=== PATIENT | male | born 1965 | race Caucasian/White ===

== ENCOUNTER 2016-09-02 12:40 | Observation (INO) | payer OTHER ==
[2016-09-02] MEDS: NS 1000 ML 1,000 ML IV SCH (15:17)
[2016-09-02 15:24] LABS: BASOPHILS # (AUTO) 0.1 X10^3/uL (0.0-0.1); BASOPHILS % (AUTO) 0.9 % (0.2-1.0); EOSINOPHILS # (AUTO) 0.1 x10^3/uL (0.0-0.2); EOSINOPHILS % (AUTO) 1.9 % (0.9-2.9); HEMATOCRIT 41.6 % (42.0-54.0); HEMOGLOBIN 14.2 g/dL (13.5-18.0); LYMPHOCYTES # (AUTO) 0.9 X10^3/uL (1.3-2.9); MEAN CORPUSCULAR HEMOGLOBIN 28.9 pg (27.0-34.0); MEAN CORPUSCULAR HGB CONC 34.2 g/dL (33.0-35.0); MEAN CORPUSCULAR VOLUME 84.7 fL (80.0-100.0); MEAN PLATELET VOLUME 10.1 fL (7.4-11.0); MONOCYTES # (AUTO) 0.5 x10^3/uL (0.3-0.8); MONOCYTES % (AUTO) 6.5 % (0.0-13.0); NEUTROPHILS # (AUTO) 5.6 x10^3/uL (2.2-4.8); NEUTROPHILS % (AUTO) 78.7 % (42.0-75.0); PLATELET COUNT 189 X10^3/uL (150.0-450.0); RED BLOOD COUNT 4.91 X10^6/uL (4.7-6.0); RED CELL DISTRIBUTION WIDTH 16.2 % (11.6-16.5); WHITE BLOOD COUNT 7.1 X10^3/uL (3.6-10.0)
[2016-09-02 15:43] LABS: BILIRUBIN,URINE NEGATIVE (NEGATIVE); BLOOD/HEMOGLOBIN,URINE 2+ (NEGATIVE); GLUCOSE, URINE 4+ (NEGATIVE); KETONES,URINE NEGATIVE (NEGATIVE); LEUKOCYTE ESTERASE ,URINE 1+ (NEGATIVE); NITRITES,URINE NEGATIVE (NEGATIVE); PROTEIN,URINE 4+ (NEGATIVE); UROBILINOGEN,URINE NORMAL (NORMAL)
[2016-09-02] MEDS ORDERED: HumuLIN R SC PRN (15:45)
[2016-09-02 15:48] LABS: APPEARANCE,URINE HAZY (CLEAR); BACTERIA,URINE TRACE /HPF (NEGATIVE); COLOR,URINE YELLOW (YELLOW); MUCUS,URINE FEW /HPF (NEGATIVE); RBC,URINE 0-3 /HPF (NEGATIVE); SQUAMOUS EPITHELIAL CELL,UR RARE /HPF (NEGATIVE)
[2016-09-02 16:07] LABS: ALANINE AMINOTRANSFERASE 22 Units/L (12-78); ALBUMIN 2.6 g/dL (3.4-5.0); ALKALINE PHOSPHATASE 93 Units/L (46-116); ASPARTATE AMINO TRANSFERASE 18 Units/L (15-37); BLOOD UREA NITROGEN 19 mg/dL (7-18); CALCIUM 8.5 mg/dL (8.5-10.1); CARBON DIOXIDE 28.5 mmol/L (21-32); CHLORIDE 101 mmol/L (98-107); CKMB % 3.3 % (<4); COR CA(FOR HYPOALB) 9.6 mg/dL (8.5-10.1); COR NA(FOR HYPERGLY) 144 mmol/L (136-145); CREATINE KINASE 131 Units/L (39-308); CREATININE 1.47 mg/dL (0.70-1.30); GLUCOSE 391 mg/dL (65-99); SODIUM 137 mmol/L (136-145); TOTAL PROTEIN 6.5 g/dL (6.4-8.2); TROPONIN I 0.05 ng/mL (0-1.5); eGFR BLACK RACES > 60 (>60); eGFR NON BLACK RACES 54 (>60)
[2016-09-02 16:10] LABS: CREATINE KINASE MB 4.3 ng/mL (0-4.0)
[2016-09-02 16:23] VITALS: BMI 30.6
[2016-09-02 16:24] LABS: FREE T4 (FREE THYROXINE) 1.12 ng/dL (0.76-1.46); TSH (3RD GENERATION) 1.596 uIU/mL (0.358-3.74)
--- NOTE | 2016-09-02 17:15 | RAD ---
HISTORY: Dizziness/ generalize weakness. Study: Portable chest. Comparison: Chest x-ray dated December 26, 2015. Findings: The costophrenic angles are off the field of view. The trachea is midline. The cardiac silhouette i s enlarged but unchanged. Prominent perihilar vasculature. No significant overt signs of failure. N o obvious focal consolidation, pleural effusion, or pneumothorax. The bony thorax is unremarkable. IMPRESSION: 1. No acute cardiopulmonary disease. Reported By:
[2016-09-02] MEDS: HumuLIN R SUBCUT PRN ×2 (17:22→21:19)
[2016-09-02] MEDS ORDERED: SNACK - Diabetic Appropriate PO SCH (20:00)
[2016-09-02 20:06] LABS: CKMB % 3.6 % (<4); TROPONIN I 0.05 ng/mL (0-1.5)
[2016-09-02 20:08] LABS: CREATINE KINASE MB 4.8 ng/mL (0-4.0)
[2016-09-02] MEDS ORDERED: NEURONTIN TAB 600 MG PO SCH (21:00)
[2016-09-02] MEDS ORDERED: COREG TAB 25 MG PO SCH (21:00)
[2016-09-02] MEDS ORDERED: PATIENT'S HOME MEDICATION (Clonazepam [Clonazepam] 1 TAB) PO SCH (21:00)
[2016-09-02] MEDS ORDERED: KLONOPIN TAB 1 MG PO SCH (21:00)
[2016-09-02] MEDS ORDERED: AMBIEN PO SCH (21:00)
[2016-09-02] MEDS: NEURONTIN CAP 300 MG PO SCH (21:17)
[2016-09-02] MEDS: LASIX PO SCH (21:18)
[2016-09-02] MEDS: KLONOPIN TAB 1 MG PO SCH (21:18)
[2016-09-02] MEDS: COREG TAB 25 MG PO SCH (21:18)
[2016-09-02] MEDS: LANTUS SC SCH (21:21)
[2016-09-02] MEDS: SNACK - Diabetic Appropriate PO SCH (21:34)
[2016-09-02 23:55] LABS: CKMB % 3.8 % (<4); TROPONIN I 0.05 ng/mL (0-1.5)
[2016-09-02 23:57] LABS: CREATINE KINASE MB 4.5 ng/mL (0-4.0)
[2016-09-03] MEDS: NS 1000 ML 1,000 ML IV SCH ×4 (03:00→23:23)
[2016-09-03] MEDS: HumuLIN R SUBCUT PRN ×4 (05:42→21:38)
[2016-09-03 05:50] LABS: BASOPHILS # (AUTO) 0.1 X10^3/uL (0.0-0.1); BASOPHILS % (AUTO) 1.4 % (0.2-1.0); EOSINOPHILS # (AUTO) 0.3 x10^3/uL (0.0-0.2); EOSINOPHILS % (AUTO) 4.5 % (0.9-2.9); HEMATOCRIT 37.8 % (42.0-54.0); HEMOGLOBIN 12.9 g/dL (13.5-18.0); LYMPHOCYTES % (AUTO) 18.1 % (21.0-51.0); MEAN CORPUSCULAR HEMOGLOBIN 28.9 pg (27.0-34.0); MEAN CORPUSCULAR HGB CONC 34.1 g/dL (33.0-35.0); MEAN CORPUSCULAR VOLUME 84.6 fL (80.0-100.0); MEAN PLATELET VOLUME 10.4 fL (7.4-11.0); MONOCYTES # (AUTO) 0.5 x10^3/uL (0.3-0.8); MONOCYTES % (AUTO) 8.4 % (0.0-13.0); NEUTROPHILS # (AUTO) 3.8 x10^3/uL (2.2-4.8); NEUTROPHILS % (AUTO) 67.6 % (42.0-75.0); PLATELET COUNT 150 X10^3/uL (150.0-450.0); RED BLOOD COUNT 4.46 X10^6/uL (4.7-6.0); RED CELL DISTRIBUTION WIDTH 16.5 % (11.6-16.5); WHITE BLOOD COUNT 5.7 X10^3/uL (3.6-10.0)
[2016-09-03 05:57] LABS: ALANINE AMINOTRANSFERASE 18 Units/L (12-78); ALBUMIN 2.3 g/dL (3.4-5.0); ALKALINE PHOSPHATASE 77 Units/L (46-116); ASPARTATE AMINO TRANSFERASE 17 Units/L (15-37); BLOOD UREA NITROGEN 20 mg/dL (7-18); CARBON DIOXIDE 27.5 mmol/L (21-32); CHLORIDE 104 mmol/L (98-107); COR CA(FOR HYPOALB) 9.4 mg/dL (8.5-10.1); COR NA(FOR HYPERGLY) 142 mmol/L (136-145); GLUCOSE 173 mg/dL (65-99); SODIUM 140 mmol/L (136-145); TOTAL PROTEIN 5.8 g/dL (6.4-8.2); eGFR BLACK RACES > 60 (>60); eGFR NON BLACK RACES > 60 (>60)
[2016-09-03] MEDS ORDERED: K-LYTE EFFERVESCENT PO PRN (06:23)
[2016-09-03] MEDS ORDERED: POTASSIUM CHLORIDE LIQ 20 MEQ UDC PO PRN (06:23)
[2016-09-03] MEDS ORDERED: K-RIDER 10 MEQ/NS 100 ML 10 MEQ/100 ML BAG IV PRN (06:23)
--- NOTE | 2016-09-03 06:41 | RAD ---
HISTORY: Shortness of breath Study: Chest one view Comparison: September 02, 2016 Findings: The heart is enlarged. The cinthya are prominent and indistinct and the interstitium is mildly prominen t. This suggest mild congestive heart failure. No alveolar edema, alveolar infiltrates, or pleural e ffusions are identified. The bony thorax is unremarkable. IMPRESSION: Cardiomegaly with interval development of mild congestive heart failure since the prior examination Reported By:
[2016-09-03] MEDS ORDERED: LEXAPRO ONE (08:53)
[2016-09-03] MEDS: COREG TAB 25 MG PO SCH ×2 (08:58→21:37)
[2016-09-03] MEDS: LEXAPRO PO SCH (08:58)
[2016-09-03] MEDS: LASIX PO SCH ×2 (08:58→21:37)
[2016-09-03] MEDS ORDERED: PLAVIX PO SCH (09:00)
[2016-09-03] MEDS: NORVASC TAB 10 MG PO SCH (09:00)
[2016-09-03] MEDS ORDERED: PROTONIX TAB 40 MG PO SCH (09:00)
[2016-09-03] MEDS ORDERED: PATIENT'S HOME MEDICATION (Escitalopram Oxalate [Lexapro 20 Mg] 1 TAB) PO SCH (09:00)
[2016-09-03] MEDS: LANTUS SC SCH ×2 (09:01→21:38)
[2016-09-03 10:25] LABS: ABG HCO3 26.5 mmol/L (22-26)
[2016-09-03 10:26] LABS: ABG ALLEN TEST POS
--- NOTE | 2016-09-03 10:43 | DR.UPDATE ---
H&P Update History and Physical Update: WAS SEEN IN THE OFFICE AND AN H&P WAS COMPLETED PRIOR TO ADMISSION. HE HAS BEEN SEEN AND EXAMINED WITH NO CHANGES NOTED. Changes noted: NO Yes with the following:
[2016-09-03] MEDS: K-DUR TAB 20 MEQ PO SCH (10:51)
--- NOTE | 2016-09-03 11:16 | PCM.PROG ---
Progress Note - Progress Note for Day of Date: 09/03/16 - Subjective Subjective: is a 51 year old male who was seen in our office yesterday with complaints of severe weakness, dizziness, chest pain, and complaints of his blood pressure being high. Upon morning rounds, patient is lying in bed with his eyes closed. Patient arouses to verbal stimuli. Patient continues to complain of weakness and dizziness throughout the night. Patient also complains of feeling short of breath, but denies any chest pain since yesterday. Patient expresses concerns that he is not able to move around and ambulate at home very well anymore and that he has to depend on someone else to transport him to appointments and around town. Patient wishes to be placed in assisted living or group home. Vitals this morning are 97.2, 60, 17, 95%, 131/69. Labs were WNL with exception of RBC 4.46, HGB 12.9, HCT 37.8, POTASSIUM 3.4, BUN 20, GLUCOSE 173, CALICUM 8.0, TOTAL PROTEIN 5.8, ALBUMIN 2.3, Cardiac profile WNL except CK- MB 4.3,4.8,4.5. EKG WNL. A chest xray was obtained and reports cardiomegaly with interval development of mild CHF. We will obtain an ABG and recheck labs and xray in am. - Past Medical Family Social History Past Med/Fam/Surg Hx: No changes since H&P Allergies: Allergies cephalexin [From Keflex] Allergy (Verified 09/02/16 15:04) clindamycin [From Cleocin] Allergy (Verified 09/02/16 15:05) Influenza Virus Vaccines Allergy (Verified 09/02/16 15:05) Penicillins Allergy (Verified 09/02/16 16:59) pneumococcal vaccine [From Pneumovax 23] Allergy (Verified 09/02/16 16:59) Sulfa (Sulfonamide Antibiotics) [SULFA] Allergy (Verified 09/02/16 15:05) - Review of Systems ROS: No change since H&P - Vital Signs and I&O's Vital Signs: Temperature 97.6 F Pulse Rate [Right Brachial] 60 Pulse Rate [Bilateral Radial] 60 Respiratory Rate 20 Blood Pressure [Left Arm] 131/69 Blood Pressure [Right Arm] 152/96 O2 Sat by Pulse Oximetry 95 Intake and Output: Intake & Output 08/31/16 09/01/16 09/02/16 09/03/16 11:59 11:59 11:59 11:59 Intake Total 2570 Output Total 2050 Balance 520 - Physical Exam Oriented: Normal Eyes: Normal Ear: Normal Nose: Normal Throat: Normal Respiratory: Normal Cardiovascular: Normal : Normal Auscultation: Bowel Sounds: Normal Palpation: Normal Tenderness: Normal Skin: Normal Musculoskeletal: Normal Psychiatric: Normal Mood Description: Calm Affect: Normal Speech Pattern: Clear, Appropriate - Laboratory and Diagnostics Result Diagrams: 09/03/16 03:30 09/03/16 03:30 Labs: Laboratory WBC 5.7 X10^3/uL (3.6-10.0) 09/03/16 03:30 RBC 4.46 X10^6/uL (4.7-6.0) L 09/03/16 03:30 Hgb 12.9 g/dL (13.5-18.0) L 09/03/16 03:30 Hct 37.8 % (42.0-54.0) L 09/03/16 03:30 MCV 84.6 fL (80.0-100.0) 09/03/16 03:30 MCH 28.9 pg (27.0-34.0) 09/03/16 03:30 MCHC 34.1 g/dL (33.0-35.0) 09/03/16 03:30 RDW 16.5 % (11.6-16.5) 09/03/16 03:30 Plt Count 150 X10^3/uL (150.0-450.0) 09/03/16 03:30 MPV 10.4 fL (7.4-11.0) 09/03/16 03:30 Neut % 67.6 % (42.0-75.0) 09/03/16 03:30 Lymph % 18.1 % (21.0-51.0) L 09/03/16 03:30 [place] % 8.4 % (0.0-13.0) 09/03/16 03:30 Eos % 4.5 % (0.9-2.9) H 09/03/16 03:30 Baso % 1.4 % (0.2-1.0) H 09/03/16 03:30 Neut # 3.8 x10^3/uL (2.2-4.8) 09/03/16 03:30 Lymph # 1.0 X10^3/uL (1.3-2.9) L 09/03/16 03:30 [place] # 0.5 x10^3/uL (0.3-0.8) 09/03/16 03:30 Eos # 0.3 x10^3/uL (0.0-0.2) H 09/03/16 03:30 Baso # 0.1 X10^3/uL (0.0-0.1) 09/03/16 03:30 Absolute Nucleated RBC 0.1 /100WBC 09/03/16 03:30 Sample Site Left radial 09/03/16 10:17 ABG pH 7.430 (7.35-7.45) 09/03/16 10:17 ABG pCO2 40.0 mmHg (35.0-45.0) 09/03/16 10:17 ABG pO2 83.0 mmHg (80.0-100.0) 09/03/16 10:17 ABG HCO3 26.5 mmol/L (22-26) H 09/03/16 10:17 ABG O2 Saturation 96.0 % (90-100) 09/03/16 10:17 ABG Base Excess 2.0 mmol/L (-2.0-2.0) 09/03/16 10:17 Kar Test Pos 09/03/16 10:17 A-a Gradient 17.0 mmHg 09/03/16 10:17 FiO2 21.000 09/03/16 10:17 Blood Gas Comments Emma well aw 09/03/16 10:17 Sodium 140 mmol/L (136-145) 09/03/16 03:30 Corrected Sodium 142 mmol/L (136-145) 09/03/16 03:30 Potassium 3.4 mmol/L (3.5-5.1) L 09/03/16 03:30 Chloride 104 mmol/L (98-107) 09/03/16 03:30 Carbon Dioxide 27.5 mmol/L (21-32) 09/03/16 03:30 BUN 20 mg/dL (7-18) H 09/03/16 03:30 Creatinine 1.30 mg/dL (0.70-1.30) 09/03/16 03:30 Est GFR (MDRD) Af Amer > 60 (>60) 09/03/16 03:30 Est GFR (MDRD) Non-Af > 60 (>60) 09/03/16 03:30 Glucose 173 mg/dL (65-99) H 09/03/16 03:30 Calcium 8.0 mg/dL (8.5-10.1) L 09/03/16 03:30 Corrected Calcium 9.4 mg/dL (8.5-10.1) 09/03/16 03:30 Total Bilirubin 0.60 mg/dL (0.2-1.0) 09/03/16 03:30 AST 17 Units/L (15-37) 09/03/16 03:30 ALT 18 Units/L (12-78) 09/03/16 03:30 Alkaline Phosphatase 77 Units/L (46-116) 09/03/16 03:30 Creatine Kinase 120 Units/L (39-308) 09/02/16 22:45 CK-MB (CK-2) 4.5 ng/mL (0-4.0) H* 09/02/16 22:45 CK/CKMB % Calc 3.8 % (<4) 09/02/16 22:45 Troponin I 0.05 ng/mL (0-1.5) 09/02/16 22:45 Total Protein 5.8 g/dL (6.4-8.2) L 09/03/16 03:30 Albumin 2.3 g/dL (3.4-5.0) L 09/03/16 03:30 Globulin 3.5 g/dL (2.5-4.5) 09/03/16 03:30 Albumin/Globulin Ratio 0.7 Ratio (1.1-2.1) L 09/03/16 03:30 Free PSA Cancelled 09/02/16 15:08 % Free PSA Calc Cancelled 09/02/16 15:08 Total PSA 0.40 ng/mL (0.13-4.0) 09/02/16 15:08 Free T4 1.12 ng/dL (0.76-1.46) 09/02/16 15:08 TSH 3rd Generation 1.596 uIU/mL (0.358-3.74) 09/02/16 15:08 Specimen Type Clean catch urine 09/02/16 15:34 Urine Color Yellow (YELLOW) 09/02/16 15:34 Urine Appearance Hazy (CLEAR) 09/02/16 15:34 Urine pH 6.0 (5.0 - 8.0) 09/02/16 15:34 Ur Specific [place] 1.015 (1.000-1.030) 09/02/16 15:34 Urine Protein 4+ (NEGATIVE) 09/02/16 15:34 Urine Glucose (UA) 4+ (NEGATIVE) 09/02/16 15:34 Urine Ketones Negative (NEGATIVE) 09/02/16 15:34 Urine Occult Blood 2+ (NEGATIVE) 09/02/16 15:34 Urine Nitrite Negative (NEGATIVE) 09/02/16 15:34 Urine Bilirubin Negative (NEGATIVE) 09/02/16 15:34 Urine Urobilinogen Normal (NORMAL) 09/02/16 15:34 Ur Leukocyte Esterase 1+ (NEGATIVE) 09/02/16 15:34 Urine RBC 0-3 /HPF (NEGATIVE) 09/02/16 15:34 Urine WBC 0-2 /HPF (NEGATIVE) 09/02/16 15:34 Ur Squamous Epith Cells Rare /HPF (NEGATIVE) 09/02/16 15:34 Urine Bacteria Trace /HPF (NEGATIVE) 09/02/16 15:34 Urine Mucus Few /HPF (NEGATIVE) 09/02/16 15:34 Ur Culture Indicated? No/not indicated 09/02/16 15:34 - Plan (1) Dizziness Status: Acute Plan: CONTINUE TO MONITOR (2) SOB (shortness of breath) Status: Acute Plan: CHECK ABG, CONTINUE LASIX, CHECK CHEST XRAY, CONTINUE TO MONITOR (3) Chest pain Status: Acute Qualifiers: Chest pain type: C Ischemic chest pain type: I Plan: CHECK CARDIAC PROFILE, EKG, CONTINUE TO MONITOR (4) Weakness Status: Acute Plan: IVF, CONTINUE TO MONITOR (5) Coronary artery disease Status: Chronic Qualifiers: Coronary Disease-Associated Artery/Lesion type: C [place] vs. transplanted heart: N Associated angina: A Plan: CONTINUE PLAVIX, CONTINUE TO MONITOR (6) Uncontrolled hypertension Status: Acute Plan: CONTINUE CURRENT BLOOD PRESSURE MEDICATION, CONTINUE TO MONITOR (7) Back pain Status: Chronic Qualifiers: Back pain location: B Chronicity: C Back pain laterality: B Sciatica presence: S Sciatica laterality: S Plan: CONTINUE GABAPENTIN, CONTINUE TO MONITOR (8) CHF (congestive heart failure) Status: Chronic Qualifiers: Congestive heart failure type: C Congestive heart failure chronicity: C Plan: CONTINUE LASIX, CHECK CHEST XRAY, CONTINUE TO MONITOR (9) Diabetes mellitus, type II Status: Chronic Qualifiers: Diabetes mellitus complication status: with circulatory complication Diabetes mellitus complication detail: D Diabetic retinopathy severity: D Proliferative retinopathy type: P Diabetes mellitus macular edema: D Diabetes mellitus longterm insulin use: with corrosion engineer use Laterality: L Chronic kidney disease stage: C Plan: CONTINUE LANTUS , SSI, OTBS, CONTINUE TO MONITOR (10) GERD (gastroesophageal reflux disease) Status: Chronic Qualifiers: Esophagitis presence: E Plan: CONTINUE HOME MEDICATION
[2016-09-03] MEDS: ALBUMIN HUMAN 25%- 100ML 100 ML IV SCH (15:46)
[2016-09-03] MEDS: MAALOX or MYLANTA PO PRN ×2 (16:43→21:36)
[2016-09-03] MEDS: AMBIEN PO SCH (21:37)
[2016-09-03] MEDS: NEURONTIN CAP 300 MG PO SCH (21:37)
[2016-09-03] MEDS: SNACK - Diabetic Appropriate PO SCH (21:44)
[2016-09-04] MEDS: MAALOX or MYLANTA PO PRN (05:48)
[2016-09-04 05:55] LABS: BASOPHILS % (AUTO) 0.6 % (0.2-1.0); EOSINOPHILS # (AUTO) 0.1 x10^3/uL (0.0-0.2); HEMATOCRIT 39.5 % (42.0-54.0); HEMOGLOBIN 13.1 g/dL (13.5-18.0); LYMPHOCYTES # (AUTO) 0.8 X10^3/uL (1.3-2.9); LYMPHOCYTES % (AUTO) 11.9 % (21.0-51.0); MEAN CORPUSCULAR HEMOGLOBIN 28.7 pg (27.0-34.0); MEAN CORPUSCULAR HGB CONC 33.2 g/dL (33.0-35.0); MEAN CORPUSCULAR VOLUME 86.5 fL (80.0-100.0); MONOCYTES # (AUTO) 0.4 x10^3/uL (0.3-0.8); MONOCYTES % (AUTO) 5.4 % (0.0-13.0); NEUTROPHILS # (AUTO) 5.2 x10^3/uL (2.2-4.8); NEUTROPHILS % (AUTO) 80.1 % (42.0-75.0); PLATELET COUNT 159 X10^3/uL (150.0-450.0); RED BLOOD COUNT 4.57 X10^6/uL (4.7-6.0); RED CELL DISTRIBUTION WIDTH 16.6 % (11.6-16.5); WHITE BLOOD COUNT 6.5 X10^3/uL (3.6-10.0)
[2016-09-04 06:03] LABS: ALANINE AMINOTRANSFERASE 21 Units/L (12-78); ALBUMIN 2.7 g/dL (3.4-5.0); ALKALINE PHOSPHATASE 88 Units/L (46-116); ASPARTATE AMINO TRANSFERASE 21 Units/L (15-37); BLOOD UREA NITROGEN 21 mg/dL (7-18); CARBON DIOXIDE 27.6 mmol/L (21-32); CHLORIDE 106 mmol/L (98-107); COR NA(FOR HYPERGLY) 144 mmol/L (136-145); CREATININE 1.32 mg/dL (0.70-1.30); GLUCOSE 187 mg/dL (65-99); SODIUM 142 mmol/L (136-145); TOTAL PROTEIN 6.3 g/dL (6.4-8.2); eGFR BLACK RACES > 60 (>60); eGFR NON BLACK RACES > 60 (>60)
--- NOTE | 2016-09-04 07:14 | RAD ---
HISTORY: Shortness of breath Study: Chest one view Comparison: December 26, 2015 Findings: The heart is enlarged. The cinthya are prominent and indistinct and the interstitium is mildly prominen t all suggestive of mild congestive heart failure. No alveolar edema, alveolar infiltrates, or pleur al effusions are identified. The bony thorax is unremarkable. IMPRESSION: Cardiomegaly with mild congestive heart failure Reported By:
[2016-09-04] MEDS ORDERED: LEXAPRO ONE (08:26)
[2016-09-04] MEDS: ZESTORETIC 20/25 MG PO SCH (08:40)
[2016-09-04] MEDS: K-DUR TAB 20 MEQ PO SCH (08:40)
[2016-09-04] MEDS: LASIX PO SCH ×2 (08:41→20:46)
[2016-09-04] MEDS: NORVASC TAB 10 MG PO SCH (08:41)
[2016-09-04] MEDS: PLAVIX PO SCH (08:41)
[2016-09-04] MEDS: PROTONIX TAB 40 MG PO SCH (08:41)
[2016-09-04] MEDS: COREG TAB 25 MG PO SCH ×2 (08:41→20:46)
[2016-09-04] MEDS: LEXAPRO PO SCH (08:41)
[2016-09-04] MEDS: ALBUMIN HUMAN 25%- 100ML 100 ML IV SCH (08:41)
[2016-09-04] MEDS: LANTUS SC SCH ×2 (08:51→20:48)
[2016-09-04] MEDS ORDERED: ZOFRAN INJ 4 MG VIAL IVP PRN (08:51)
[2016-09-04] MEDS ORDERED: NORVASC TAB 10 MG PO SCH (09:00)
[2016-09-04] MEDS ORDERED: LEXAPRO PO SCH (09:00)
[2016-09-04] MEDS ORDERED: K-DUR TAB 20 MEQ PO SCH (09:00)
[2016-09-04] MEDS: NS 1000 ML 1,000 ML IV SCH (09:17)
--- NOTE | 2016-09-04 10:08 | PCM.PROG ---
Progress Note - Progress Note for Day of Date: 09/04/16 - Subjective Subjective: Upon morning rounds, patient is lying in bed with eyes open. Patient continues to complain of weakness and dizziness throughout the night. Patient also complains of nausea and vomiting, but denies any chest pain at this time. Vitals this morning are 97.6, 66, 20, 92% on room air, 164/98. Labs were WNL with exception of RBC 4.57, HGB 13.1, HCT 39.5, POTASSIUM 3.7, BUN 21, CREATININE 1.32, GLUCOSE 187, CALICUM 8.0, TOTAL PROTEIN 6.3, ALBUMIN 2.7, A chest xray was obtained and reports cardiomegaly with mild CHF. ECHO reported EF 45%. ABG reported normal with exception of HC03 26.5. We will start patient on Zofran for nausea. We will check labs and follow up with patient in am. - Past Medical Family Social History Past Med/Fam/Surg Hx: No changes since H&P Allergies: Allergies cephalexin [From Keflex] Allergy (Verified 09/02/16 15:04) clindamycin [From Cleocin] Allergy (Verified 09/02/16 15:05) Influenza Virus Vaccines Allergy (Verified 09/02/16 15:05) MS Cephalexin [From Keflex] Allergy (Verified 02/05/15 12:38) MS Penicillins [Penicillins] Allergy (Verified 02/05/15 12:37) MS Sulfa Antibiotics [Sulfa Antibiotics] Allergy (Verified 02/05/15 12:44) Penicillins Allergy (Verified 09/02/16 16:59) pneumococcal vaccine [From Pneumovax 23] Allergy (Verified 09/02/16 16:59) Sulfa (Sulfonamide Antibiotics) [SULFA] Allergy (Verified 09/02/16 15:05) - Review of Systems ROS: No change since H&P - Vital Signs and I&O's Vital Signs: Temperature 97.6 F Pulse Rate [Right Brachial] 66 Pulse Rate [Bilateral Radial] 60 Respiratory Rate 20 Blood Pressure [Left Arm] 131/69 Blood Pressure [Right Arm] 164/98 Blood Pressure [Right Arm] 137/75 Blood Pressure [Left Arm] 145/77 Blood Pressure 153/93 O2 Sat by Pulse Oximetry 92 Intake and Output: Intake & Output 07/0409/02/16 09/03/16 09/04/16 11:59 11:59 11:59 11:59 Intake Total 3737 9904 Output Total 8506 2277 Balance 520 668 - Physical Exam Oriented: Normal Eyes: Normal. negative: Blurred Vision, Diplopia, Discharge, Pain, Redness, Photophobia, Other Ear: Normal. negative: Right, Left, Swelling, Ecchymosis, Hemotypanum, Abrasion , Laceration Nose: Normal Throat: Normal Respiratory: Normal. negative: Right, Left, Generalized, Superior, Inferior, Diminished, Wheezes, Rales, Rhonchi, OTHER Cardiovascular: Normal. negative: Tachycardia, Bradycardia, Irregular, S3, S4, Systolic, Diastolic, Murmur, Edema, Other : Normal Auscultation: Bowel Sounds: Normal. negative: Bruit, Absent, Increased, Decreased, High Pitched, Other Palpation: Normal Tenderness: Normal Skin: Normal Musculoskeletal: Normal Psychiatric: Normal Mood Description: Calm Affect: Normal Speech Pattern: Clear, Appropriate - Laboratory and Diagnostics Result Diagrams: 09/04/16 03:30 09/04/16 03:30 Labs: Laboratory WBC 6.5 X10^3/uL (3.6-10.0) 09/04/16 03:30 RBC 4.57 X10^6/uL (4.7-6.0) L 09/04/16 03:30 Hgb 13.1 g/dL (13.5-18.0) L 09/04/16 03:30 Hct 39.5 % (42.0-54.0) L 09/04/16 03:30 MCV 86.5 fL (80.0-100.0) 09/04/16 03:30 MCH 28.7 pg (27.0-34.0) 09/04/16 03:30 MCHC 33.2 g/dL (33.0-35.0) 09/04/16 03:30 RDW 16.6 % (11.6-16.5) H 09/04/16 03:30 Plt Count 159 X10^3/uL (150.0-450.0) 09/04/16 03:30 MPV 11.0 fL (7.4-11.0) 09/04/16 03:30 Neut % 80.1 % (42.0-75.0) H 09/04/16 03:30 Lymph % 11.9 % (21.0-51.0) L 09/04/16 03:30 [place] % 5.4 % (0.0-13.0) 09/04/16 03:30 Eos % 2.0 % (0.9-2.9) 09/04/16 03:30 Baso % 0.6 % (0.2-1.0) 09/04/16 03:30 Neut # 5.2 x10^3/uL (2.2-4.8) H 09/04/16 03:30 Lymph # 0.8 X10^3/uL (1.3-2.9) L 09/04/16 03:30 [place] # 0.4 x10^3/uL (0.3-0.8) 09/04/16 03:30 Eos # 0.1 x10^3/uL (0.0-0.2) 09/04/16 03:30 Baso # 0.0 X10^3/uL (0.0-0.1) 09/04/16 03:30 Absolute Nucleated RBC 0.4 /100WBC 09/04/16 03:30 Sample Site Left radial 09/03/16 10:17 ABG pH 7.430 (7.35-7.45) 09/03/16 10:17 ABG pCO2 40.0 mmHg (35.0-45.0) 09/03/16 10:17 ABG pO2 83.0 mmHg (80.0-100.0) 09/03/16 10:17 ABG HCO3 26.5 mmol/L (22-26) H 09/03/16 10:17 ABG O2 Saturation 96.0 % (90-100) 09/03/16 10:17 ABG Base Excess 2.0 mmol/L (-2.0-2.0) 09/03/16 10:17 Kar Test Pos 09/03/16 10:17 A-a Gradient 17.0 mmHg 09/03/16 10:17 FiO2 21.000 09/03/16 10:17 Blood Gas Comments Emma well aw 09/03/16 10:17 Sodium 142 mmol/L (136-145) 09/04/16 03:30 Corrected Sodium 144 mmol/L (136-145) 09/04/16 03:30 Potassium 3.7 mmol/L (3.5-5.1) 09/04/16 03:30 Chloride 106 mmol/L (98-107) 09/04/16 03:30 Carbon Dioxide 27.6 mmol/L (21-32) 09/04/16 03:30 BUN 21 mg/dL (7-18) H 09/04/16 03:30 Creatinine 1.32 mg/dL (0.70-1.30) H 09/04/16 03:30 Est GFR (MDRD) Af Amer > 60 (>60) 09/04/16 03:30 Est GFR (MDRD) Non-Af > 60 (>60) 09/04/16 03:30 Glucose 187 mg/dL (65-99) H 09/04/16 03:30 Calcium 8.0 mg/dL (8.5-10.1) L 09/04/16 03:30 Corrected Calcium 9.0 mg/dL (8.5-10.1) 09/04/16 03:30 Total Bilirubin 0.60 mg/dL (0.2-1.0) 09/04/16 03:30 AST 21 Units/L (15-37) 09/04/16 03:30 ALT 21 Units/L (12-78) 09/04/16 03:30 Alkaline Phosphatase 88 Units/L (46-116) 09/04/16 03:30 Creatine Kinase 120 Units/L (39-308) 09/02/16 22:45 CK-MB (CK-2) 4.5 ng/mL (0-4.0) H* 09/02/16 22:45 CK/CKMB % Calc 3.8 % (<4) 09/02/16 22:45 Troponin I 0.05 ng/mL (0-1.5) 09/02/16 22:45 Total Protein 6.3 g/dL (6.4-8.2) L 09/04/16 03:30 Albumin 2.7 g/dL (3.4-5.0) L 09/04/16 03:30 Globulin 3.6 g/dL (2.5-4.5) 09/04/16 03:30 Albumin/Globulin Ratio 0.8 Ratio (1.1-2.1) L 09/04/16 03:30 Free PSA Cancelled 09/02/16 15:08 % Free PSA Calc Cancelled 09/02/16 15:08 Total PSA 0.40 ng/mL (0.13-4.0) 09/02/16 15:08 Free T4 1.12 ng/dL (0.76-1.46) 09/02/16 15:08 TSH 3rd Generation 1.596 uIU/mL (0.358-3.74) 09/02/16 15:08 Specimen Type Clean catch urine 09/02/16 15:34 Urine Color Yellow (YELLOW) 09/02/16 15:34 Urine Appearance Hazy (CLEAR) 09/02/16 15:34 Urine pH 6.0 (5.0 - 8.0) 09/02/16 15:34 Ur Specific [place] 1.015 (1.000-1.030) 09/02/16 15:34 Urine Protein 4+ (NEGATIVE) 09/02/16 15:34 Urine Glucose (UA) 4+ (NEGATIVE) 09/02/16 15:34 Urine Ketones Negative (NEGATIVE) 09/02/16 15:34 Urine Occult Blood 2+ (NEGATIVE) 09/02/16 15:34 Urine Nitrite Negative (NEGATIVE) 09/02/16 15:34 Urine Bilirubin Negative (NEGATIVE) 09/02/16 15:34 Urine Urobilinogen Normal (NORMAL) 09/02/16 15:34 Ur Leukocyte Esterase 1+ (NEGATIVE) 09/02/16 15:34 Urine RBC 0-3 /HPF (NEGATIVE) 09/02/16 15:34 Urine WBC 0-2 /HPF (NEGATIVE) 09/02/16 15:34 Ur Squamous Epith Cells Rare /HPF (NEGATIVE) 09/02/16 15:34 Urine Bacteria Trace /HPF (NEGATIVE) 09/02/16 15:34 Urine Mucus Few /HPF (NEGATIVE) 09/02/16 15:34 Ur Culture Indicated? No/not indicated 09/02/16 15:34 - Plan (1) CHF (congestive heart failure) Status: Chronic Qualifiers: Congestive heart failure type: C Congestive heart failure chronicity: C Plan: CONTINUE LASIX, CHECK CHEST XRAY, CONTINUE TO MONITOR (2) Chest pain Status: Acute Qualifiers: Chest pain type: C Ischemic chest pain type: I Plan: CHECK CARDIAC PROFILE, EKG, CONTINUE TO MONITOR (3) Uncontrolled hypertension Status: Acute Plan: CONTINUE CURRENT BLOOD PRESSURE MEDICATION, CONTINUE TO MONITOR (4) Weakness Status: Acute Plan: IVF, CONTINUE TO MONITOR (5) SOB (shortness of breath) Status: Acute Plan: CHECK ABG, CONTINUE LASIX, CHECK CHEST XRAY, CONTINUE TO MONITOR (6) Dizziness Status: Acute Plan: CONTINUE TO MONITOR (7) Nausea & vomiting Status: Acute Qualifiers: Vomiting type: V Vomiting Intractability: V Plan: start zofran, continue to monitor (8) Hypokalemia Status: Acute Plan: POTASSIUM PROTOCOL, CONTINUE TO MONITOR LABS (9) Hypoalbuminemia Status: Acute Plan: ALBUMIN 1 BOTTLE IV DAILY, CONTINUE TO MONITOR LABS (10) GERD (gastroesophageal reflux disease) Status: Chronic Qualifiers: Esophagitis presence: E Plan: CONTINUE HOME MEDICATION (11) Back pain Status: Chronic Qualifiers: Back pain location: B Chronicity: C Back pain laterality: B Sciatica presence: S Sciatica laterality: S Plan: CONTINUE GABAPENTIN, CONTINUE TO MONITOR (12) Diabetes mellitus, type II Status: Chronic Qualifiers: Diabetes mellitus complication status: with circulatory complication Diabetes mellitus complication detail: D Diabetic retinopathy severity: D Proliferative retinopathy type: P Diabetes mellitus macular edema: D 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 transplanted heart: N Associated angina: A Plan: CONTINUE PLAVIX, CONTINUE TO MONITOR
[2016-09-04] MEDS: NEURONTIN CAP 300 MG PO SCH (20:46)
[2016-09-04] MEDS: KLONOPIN TAB 1 MG PO SCH (20:46)
[2016-09-04] MEDS: SNACK - Diabetic Appropriate PO SCH (20:47)
[2016-09-05 05:59] LABS: ALANINE AMINOTRANSFERASE 23 Units/L (12-78); ALBUMIN 2.4 g/dL (3.4-5.0); ALKALINE PHOSPHATASE 76 Units/L (46-116); ASPARTATE AMINO TRANSFERASE 29 Units/L (15-37); BLOOD UREA NITROGEN 18 mg/dL (7-18); CALCIUM 7.6 mg/dL (8.5-10.1); CARBON DIOXIDE 27.6 mmol/L (21-32); CHLORIDE 109 mmol/L (98-107); COR CA(FOR HYPOALB) 8.9 mg/dL (8.5-10.1); COR NA(FOR HYPERGLY) 143 mmol/L (136-145); CREATININE 1.36 mg/dL (0.70-1.30); GLUCOSE 123 mg/dL (65-99); SODIUM 142 mmol/L (136-145); TOTAL PROTEIN 5.6 g/dL (6.4-8.2); eGFR BLACK RACES > 60 (>60); eGFR NON BLACK RACES 59 (>60)
[2016-09-05 06:03] LABS: BASOPHILS % (AUTO) 0.5 % (0.2-1.0); EOSINOPHILS # (AUTO) 0.2 x10^3/uL (0.0-0.2); EOSINOPHILS % (AUTO) 4.9 % (0.9-2.9); HEMATOCRIT 36.1 % (42.0-54.0); HEMOGLOBIN 12.1 g/dL (13.5-18.0); LYMPHOCYTES # (AUTO) 0.8 X10^3/uL (1.3-2.9); MEAN CORPUSCULAR HEMOGLOBIN 28.6 pg (27.0-34.0); MEAN CORPUSCULAR HGB CONC 33.7 g/dL (33.0-35.0); MEAN CORPUSCULAR VOLUME 84.9 fL (80.0-100.0); MEAN PLATELET VOLUME 10.4 fL (7.4-11.0); MONOCYTES # (AUTO) 0.4 x10^3/uL (0.3-0.8); MONOCYTES % (AUTO) 7.2 % (0.0-13.0); NEUTROPHILS # (AUTO) 3.5 x10^3/uL (2.2-4.8); NEUTROPHILS % (AUTO) 71.4 % (42.0-75.0); PLATELET COUNT 140 X10^3/uL (150.0-450.0); RED BLOOD COUNT 4.24 X10^6/uL (4.7-6.0); RED CELL DISTRIBUTION WIDTH 16.4 % (11.6-16.5); WHITE BLOOD COUNT 4.9 X10^3/uL (3.6-10.0)
[2016-09-05] MEDS ORDERED: LEXAPRO ONE (07:33)
[2016-09-05] MEDS: NORVASC TAB 10 MG PO SCH (08:10)
[2016-09-05] MEDS: K-DUR TAB 20 MEQ PO SCH (08:10)
[2016-09-05] MEDS: PLAVIX PO SCH (08:10)
[2016-09-05] MEDS: LASIX PO SCH ×2 (08:10→20:41)
[2016-09-05] MEDS: COREG TAB 25 MG PO SCH ×2 (08:10→21:04)
[2016-09-05] MEDS: ZESTORETIC 20/25 MG PO SCH (08:10)
[2016-09-05] MEDS: NS 1000 ML 1,000 ML IV SCH ×4 (08:10→23:17)
[2016-09-05] MEDS: LEXAPRO PO SCH (08:10)
[2016-09-05] MEDS: PROTONIX TAB 40 MG PO SCH (08:10)
[2016-09-05] MEDS: ALBUMIN HUMAN 25%- 100ML 100 ML IV SCH (08:53)
[2016-09-05] MEDS: LANTUS SC SCH ×2 (08:54→21:04)
[2016-09-05] MEDS ORDERED: ALBUMIN HUMAN 25%- 100ML 100 ML IV ONE ×2 (10:37→10:39)
[2016-09-05] MEDS: LASIX IVP SCH ×2 (11:26→21:03)
[2016-09-05] MEDS: HumuLIN R SUBCUT PRN ×3 (11:27→21:05)
--- NOTE | 2016-09-05 11:58 | PCM.PROG ---
Progress Note - Subjective Subjective: Upon morning rounds, patient is lying in bed with eyes open. Patient continues to complain of weakness and shortness of breath, however, states that dizziness has subsided. Patient denies chest pain. Nausea and vomiting has improved. On examination, lungs are clear to auscultation. bowel sounds are normal in all quadrants. Vitals this morning are 97.5, 56, 18, 94%, 127/86. Labs were WNL with exception of RBC 4.24, HGB 12.1, HCT 36.1, POTASSIUM 3.3, BUN 18, CREATININE 1.36, GLUCOSE 123, CALICUM 7.6, TOTAL PROTEIN 5.6, ALBUMIN 2.4. A chest xray was obtained and reports cardiomegaly with mild CHF. We are awaiting alf placement. We will start lasix this morning and consult respiratory therapy for BI-PAP at . We will recheck labs and follow up with patient in am. - Past Medical Family Social History Past Med/Fam/Surg Hx: No changes since H&P Allergies: Allergies cephalexin [From Keflex] Allergy (Verified 09/02/16 15:04) clindamycin [From Cleocin] Allergy (Verified 09/02/16 15:05) Influenza Virus Vaccines Allergy (Verified 09/02/16 15:05) MS Cephalexin [From Keflex] Allergy (Verified 02/05/15 12:38) MS Penicillins [Penicillins] Allergy (Verified 02/05/15 12:37) MS Sulfa Antibiotics [Sulfa Antibiotics] Allergy (Verified 02/05/15 12:44) Penicillins Allergy (Verified 09/02/16 16:59) pneumococcal vaccine [From Pneumovax 23] Allergy (Verified 09/02/16 16:59) Sulfa (Sulfonamide Antibiotics) [SULFA] Allergy (Verified 09/02/16 15:05) - Review of Systems ROS: No change since H&P - Vital Signs and I&O's Vital Signs: Temperature 97.5 F Pulse Rate [Right Brachial] 56 Pulse Rate [Bilateral Radial] 60 Respiratory Rate 18 Blood Pressure [Left Arm] 127/86 Blood Pressure [Right Arm] 121/76 Blood Pressure [Right Arm] 137/75 Blood Pressure [Left Arm] 145/77 Blood Pressure 153/93 O2 Sat by Pulse Oximetry 94 Intake and Output: Intake & Output 09/02/16 09/03/16 09/04/16 09/05/16 11:59 11:59 11:59 11:59 Intake Total 2570 7733 1730 Output Total 1897 1825 1500 Balance 520 668 230 - Physical Exam Oriented: Normal Eyes: Normal. negative: Blurred Vision, Diplopia, Discharge, Pain, Redness, Photophobia, Other Ear: Normal. negative: Right, Left, Swelling, Ecchymosis, Hemotypanum, Abrasion , Laceration Nose: Normal Throat: Normal Respiratory: Normal. negative: Right, Left, Generalized, Superior, Inferior, Diminished, Wheezes, Rales, Rhonchi, OTHER Cardiovascular: Normal. negative: Tachycardia, Bradycardia, Irregular, S3, S4, Systolic, Diastolic, Murmur, Edema, Other : Normal Auscultation: Bowel Sounds: Normal. negative: Bruit, Absent, Increased, Decreased, High Pitched, Other Palpation: Normal Tenderness: Normal Skin: Normal Musculoskeletal: Normal Psychiatric: Normal Mood Description: Calm Affect: Normal Speech Pattern: Clear, Appropriate - Laboratory and Diagnostics Result Diagrams: 09/05/16 05:10 09/05/16 05:10 Labs: Laboratory WBC 4.9 X10^3/uL (3.6-10.0) 09/05/16 05:10 RBC 4.24 X10^6/uL (4.7-6.0) L 09/05/16 05:10 Hgb 12.1 g/dL (13.5-18.0) L 09/05/16 05:10 Hct 36.1 % (42.0-54.0) L 09/05/16 05:10 MCV 84.9 fL (80.0-100.0) 09/05/16 05:10 MCH 28.6 pg (27.0-34.0) 09/05/16 05:10 MCHC 33.7 g/dL (33.0-35.0) 09/05/16 05:10 RDW 16.4 % (11.6-16.5) 09/05/16 05:10 Plt Count 140 X10^3/uL (150.0-450.0) L 09/05/16 05:10 MPV 10.4 fL (7.4-11.0) 09/05/16 05:10 Neut % 71.4 % (42.0-75.0) 09/05/16 05:10 Lymph % 16.0 % (21.0-51.0) L 09/05/16 05:10 [place] % 7.2 % (0.0-13.0) 09/05/16 05:10 Eos % 4.9 % (0.9-2.9) H 09/05/16 05:10 Baso % 0.5 % (0.2-1.0) 09/05/16 05:10 Neut # 3.5 x10^3/uL (2.2-4.8) 09/05/16 05:10 Lymph # 0.8 X10^3/uL (1.3-2.9) L 09/05/16 05:10 [place] # 0.4 x10^3/uL (0.3-0.8) 09/05/16 05:10 Eos # 0.2 x10^3/uL (0.0-0.2) 09/05/16 05:10 Baso # 0.0 X10^3/uL (0.0-0.1) 09/05/16 05:10 Absolute Nucleated RBC 0.1 /100WBC 09/05/16 05:10 Sample Site Left radial 09/03/16 10:17 ABG pH 7.430 (7.35-7.45) 09/03/16 10:17 ABG pCO2 40.0 mmHg (35.0-45.0) 09/03/16 10:17 ABG pO2 83.0 mmHg (80.0-100.0) 09/03/16 10:17 ABG HCO3 26.5 mmol/L (22-26) H 09/03/16 10:17 ABG O2 Saturation 96.0 % (90-100) 09/03/16 10:17 ABG Base Excess 2.0 mmol/L (-2.0-2.0) 09/03/16 10:17 Kar Test Pos 09/03/16 10:17 A-a Gradient 17.0 mmHg 09/03/16 10:17 FiO2 21.000 09/03/16 10:17 Blood Gas Comments Emma well aw 09/03/16 10:17 Sodium 142 mmol/L (136-145) 09/05/16 05:10 Corrected Sodium 143 mmol/L (136-145) 09/05/16 05:10 Potassium 3.3 mmol/L (3.5-5.1) L 09/05/16 05:10 Chloride 109 mmol/L (98-107) H 09/05/16 05:10 Carbon Dioxide 27.6 mmol/L (21-32) 09/05/16 05:10 BUN 18 mg/dL (7-18) 09/05/16 05:10 Creatinine 1.36 mg/dL (0.70-1.30) H 09/05/16 05:10 Est GFR (MDRD) Af Amer > 60 (>60) 09/05/16 05:10 Est GFR (MDRD) Non-Af 59 (>60) 09/05/16 05:10 Glucose 123 mg/dL (65-99) H 09/05/16 05:10 Calcium 7.6 mg/dL (8.5-10.1) L 09/05/16 05:10 Corrected Calcium 8.9 mg/dL (8.5-10.1) 09/05/16 05:10 Total Bilirubin 0.60 mg/dL (0.2-1.0) 09/05/16 05:10 AST 29 Units/L (15-37) 09/05/16 05:10 ALT 23 Units/L (12-78) 09/05/16 05:10 Alkaline Phosphatase 76 Units/L (46-116) 09/05/16 05:10 Creatine Kinase 120 Units/L (39-308) 09/02/16 22:45 CK-MB (CK-2) 4.5 ng/mL (0-4.0) H* 09/02/16 22:45 CK/CKMB % Calc 3.8 % (<4) 09/02/16 22:45 Troponin I 0.05 ng/mL (0-1.5) 09/02/16 22:45 Total Protein 5.6 g/dL (6.4-8.2) L 09/05/16 05:10 Albumin 2.4 g/dL (3.4-5.0) L 09/05/16 05:10 Globulin 3.2 g/dL (2.5-4.5) 09/05/16 05:10 Albumin/Globulin Ratio 0.8 Ratio (1.1-2.1) L 09/05/16 05:10 Free PSA Cancelled 09/02/16 15:08 % Free PSA Calc Cancelled 09/02/16 15:08 Total PSA 0.40 ng/mL (0.13-4.0) 09/02/16 15:08 Free T4 1.12 ng/dL (0.76-1.46) 09/02/16 15:08 TSH 3rd Generation 1.596 uIU/mL (0.358-3.74) 09/02/16 15:08 Specimen Type Clean catch urine 09/02/16 15:34 Urine Color Yellow (YELLOW) 09/02/16 15:34 Urine Appearance Hazy (CLEAR) 09/02/16 15:34 Urine pH 6.0 (5.0 - 8.0) 09/02/16 15:34 Ur Specific [place] 1.015 (1.000-1.030) 09/02/16 15:34 Urine Protein 4+ (NEGATIVE) 09/02/16 15:34 Urine Glucose (UA) 4+ (NEGATIVE) 09/02/16 15:34 Urine Ketones Negative (NEGATIVE) 09/02/16 15:34 Urine Occult Blood 2+ (NEGATIVE) 09/02/16 15:34 Urine Nitrite Negative (NEGATIVE) 09/02/16 15:34 Urine Bilirubin Negative (NEGATIVE) 09/02/16 15:34 Urine Urobilinogen Normal (NORMAL) 09/02/16 15:34 Ur Leukocyte Esterase 1+ (NEGATIVE) 09/02/16 15:34 Urine RBC 0-3 /HPF (NEGATIVE) 09/02/16 15:34 Urine WBC 0-2 /HPF (NEGATIVE) 09/02/16 15:34 Ur Squamous Epith Cells Rare /HPF (NEGATIVE) 09/02/16 15:34 Urine Bacteria Trace /HPF (NEGATIVE) 09/02/16 15:34 Urine Mucus Few /HPF (NEGATIVE) 09/02/16 15:34 Ur Culture Indicated? No/not indicated 09/02/16 15:34 - Plan (1) CHF (congestive heart failure) Status: Chronic Qualifiers: Congestive heart failure type: C Congestive heart failure chronicity: C Plan: CONTINUE LASIX, CHECK CHEST XRAY, CONTINUE TO MONITOR (2) Chest pain Status: Acute Qualifiers: Chest pain type: C Ischemic chest pain type: I Plan: CHECK CARDIAC PROFILE, EKG, CONTINUE TO MONITOR (3) Uncontrolled hypertension Status: Acute Plan: CONTINUE CURRENT BLOOD PRESSURE MEDICATION, CONTINUE TO MONITOR (4) Weakness Status: Acute Plan: IVF, CONTINUE TO MONITOR (5) SOB (shortness of breath) Status: Acute Plan: CHECK ABG, CONTINUE LASIX, CHECK CHEST XRAY, CONTINUE TO MONITOR (6) Dizziness Status: Acute Plan: CONTINUE TO MONITOR (7) Nausea & vomiting Status: Acute Qualifiers: Vomiting type: V Vomiting Intractability: V Plan: start zofran, continue to monitor (8) Hypokalemia Status: Acute Plan: POTASSIUM PROTOCOL, CONTINUE TO MONITOR LABS (9) Hypoalbuminemia Status: Acute Plan: ALBUMIN 1 BOTTLE IV DAILY, CONTINUE TO MONITOR LABS (10) GERD (gastroesophageal reflux disease) Status: Chronic Qualifiers: Esophagitis presence: E Plan: CONTINUE HOME MEDICATION (11) Back pain Status: Chronic Qualifiers: Back pain location: B Chronicity: C Back pain laterality: B Sciatica presence: S Sciatica laterality: S Plan: CONTINUE GABAPENTIN, CONTINUE TO MONITOR (12) Diabetes mellitus, type II Status: Chronic Qualifiers: Diabetes mellitus complication status: with circulatory complication Diabetes mellitus complication detail: D Diabetic retinopathy severity: D Proliferative retinopathy type: P Diabetes mellitus macular edema: D Diabetes mellitus shelter insulin use: with shelter use Laterality: L Chronic kidney disease stage: C Plan: CONTINUE LANTUS , SSI, OTBS, CONTINUE TO MONITOR (13) Coronary artery disease Status: Chronic Qualifiers: Coronary Disease-Associated Artery/Lesion type: C [place] vs. transplanted heart: N Associated angina: A Plan: CONTINUE PLAVIX, CONTINUE TO MONITOR
[2016-09-05] MEDS: NEURONTIN CAP 300 MG PO SCH (21:03)
[2016-09-05] MEDS: AMBIEN PO SCH (21:04)
[2016-09-05] MEDS: SNACK - Diabetic Appropriate PO SCH (21:04)
[2016-09-06 05:46] LABS: BASOPHILS % (AUTO) 0.5 % (0.2-1.0); EOSINOPHILS # (AUTO) 0.2 x10^3/uL (0.0-0.2); EOSINOPHILS % (AUTO) 4.1 % (0.9-2.9); HEMATOCRIT 36.6 % (42.0-54.0); HEMOGLOBIN 12.4 g/dL (13.5-18.0); LYMPHOCYTES # (AUTO) 0.7 X10^3/uL (1.3-2.9); LYMPHOCYTES % (AUTO) 13.5 % (21.0-51.0); MEAN CORPUSCULAR HGB CONC 33.9 g/dL (33.0-35.0); MEAN CORPUSCULAR VOLUME 85.4 fL (80.0-100.0); MEAN PLATELET VOLUME 10.2 fL (7.4-11.0); MONOCYTES # (AUTO) 0.4 x10^3/uL (0.3-0.8); MONOCYTES % (AUTO) 7.4 % (0.0-13.0); NEUTROPHILS # (AUTO) 3.9 x10^3/uL (2.2-4.8); NEUTROPHILS % (AUTO) 74.5 % (42.0-75.0); PLATELET COUNT 143 X10^3/uL (150.0-450.0); RED BLOOD COUNT 4.29 X10^6/uL (4.7-6.0); RED CELL DISTRIBUTION WIDTH 16.6 % (11.6-16.5); WHITE BLOOD COUNT 5.2 X10^3/uL (3.6-10.0)
[2016-09-06] MEDS: NS 1000 ML 1,000 ML IV SCH ×2 (05:46→14:10)
[2016-09-06 05:47] LABS: ALANINE AMINOTRANSFERASE 29 Units/L (12-78); ALBUMIN 2.8 g/dL (3.4-5.0); ALKALINE PHOSPHATASE 82 Units/L (46-116); ASPARTATE AMINO TRANSFERASE 23 Units/L (15-37); BLOOD UREA NITROGEN 18 mg/dL (7-18); CALCIUM 8.1 mg/dL (8.5-10.1); CARBON DIOXIDE 27.6 mmol/L (21-32); CHLORIDE 106 mmol/L (98-107); COR CA(FOR HYPOALB) 9.1 mg/dL (8.5-10.1); CREATININE 1.36 mg/dL (0.70-1.30); GLUCOSE 86 mg/dL (65-99); SODIUM 142 mmol/L (136-145); TOTAL PROTEIN 6.2 g/dL (6.4-8.2); eGFR BLACK RACES > 60 (>60); eGFR NON BLACK RACES 59 (>60)
[2016-09-06] MEDS ORDERED: LEXAPRO ONE (09:14)
[2016-09-06] MEDS: K-DUR TAB 20 MEQ PO SCH (09:54)
[2016-09-06] MEDS: PLAVIX PO SCH (09:54)
[2016-09-06] MEDS: ZESTORETIC 20/25 MG PO SCH (09:54)
[2016-09-06] MEDS: NORVASC TAB 10 MG PO SCH (09:54)
[2016-09-06] MEDS: LEXAPRO PO SCH (09:54)
[2016-09-06] MEDS: COREG TAB 25 MG PO SCH ×2 (09:55→21:47)
[2016-09-06] MEDS: PROTONIX TAB 40 MG PO SCH (09:55)
[2016-09-06] MEDS: LASIX PO SCH ×2 (09:55→21:47)
[2016-09-06] MEDS: LANTUS SC SCH ×2 (10:09→21:48)
--- NOTE | 2016-09-06 10:40 | PCM.PROG ---
Progress Note - Progress Note for Day of Date: 09/06/16 - Subjective Subjective: Upon morning rounds, patient is lying in bed with eyes open. Patient continues with complaints of weakness with slight improvement. Staff reports that patient has been ambulating in hallways with assistance. On examination, lungs are clear to auscultation. bowel sounds are normal in all quadrants. Vitals this morning are 97.9, 63, 20, 96%, 169/89. Labs were WNL with exception of RBC 4.29, HGB 12.4, HCT 36.6, POTASSIUM 3.2, BUN 18, CREATININE 1.36,CALICUM 8.1, TOTAL PROTEIN 6.2, ALBUMIN 2.8. A chest xray was obtained and reports cardiomegaly with mild CHF. We are awaiting halfway placement. We will recheck labs and follow up with patient in am. - Past Medical Family Social History Past Med/Fam/Surg Hx: No changes since H&P Allergies: Allergies cephalexin [From Keflex] Allergy (Verified 09/02/16 15:04) clindamycin [From Cleocin] Allergy (Verified 09/02/16 15:05) Influenza Virus Vaccines Allergy (Verified 09/02/16 15:05) MS Cephalexin [From Keflex] Allergy (Verified 02/05/15 12:38) MS Penicillins [Penicillins] Allergy (Verified 02/05/15 12:37) MS Sulfa Antibiotics [Sulfa Antibiotics] Allergy (Verified 02/05/15 12:44) Penicillins Allergy (Verified 09/02/16 16:59) pneumococcal vaccine [From Pneumovax 23] Allergy (Verified 09/02/16 16:59) Sulfa (Sulfonamide Antibiotics) [SULFA] Allergy (Verified 09/02/16 15:05) - Review of Systems ROS: No change since H&P - Vital Signs and I&O's Vital Signs: Temperature 97.9 F Pulse Rate [Left Brachial] 63 Pulse Rate [Right Brachial] 65 Pulse Rate [Bilateral Radial] 60 Respiratory Rate 20 Blood Pressure [Left Arm] 156/88 Blood Pressure [Right Arm] 169/89 Blood Pressure [Right Arm] 137/75 Blood Pressure [Left Arm] 145/77 Blood Pressure 153/93 O2 Sat by Pulse Oximetry 96 Intake and Output: Intake & Output 09/03/16 09/04/16 09/05/16 09/06/16 11:59 11:59 11:59 11:59 Intake Total 2570 4243 1730 5421 Output Total 3156 1825 1500 4775 Balance 520 668 230 646 - Physical Exam Oriented: Normal Eyes: Normal. negative: Blurred Vision, Diplopia, Discharge, Pain, Redness, Photophobia, Other Ear: Normal. negative: Right, Left, Swelling, Ecchymosis, Hemotypanum, Abrasion , Laceration Nose: Normal Throat: Normal Respiratory: Normal. negative: Right, Left, Generalized, Superior, Inferior, Diminished, Wheezes, Rales, Rhonchi, OTHER Cardiovascular: Normal. negative: Tachycardia, Bradycardia, Irregular, S3, S4, Systolic, Diastolic, Murmur, Edema, Other : Normal Auscultation: Bowel Sounds: Normal. negative: Bruit, Absent, Increased, Decreased, High Pitched, Other Tenderness: Normal Skin: Normal Musculoskeletal: Normal Psychiatric: Normal Mood Description: Calm Affect: Normal Speech Pattern: Clear, Appropriate - Laboratory and Diagnostics Result Diagrams: 09/06/16 04:55 09/06/16 04:55 Labs: Laboratory WBC 5.2 X10^3/uL (3.6-10.0) 09/06/16 04:55 RBC 4.29 X10^6/uL (4.7-6.0) L 09/06/16 04:55 Hgb 12.4 g/dL (13.5-18.0) L 09/06/16 04:55 Hct 36.6 % (42.0-54.0) L 09/06/16 04:55 MCV 85.4 fL (80.0-100.0) 09/06/16 04:55 MCH 29.0 pg (27.0-34.0) 09/06/16 04:55 MCHC 33.9 g/dL (33.0-35.0) 09/06/16 04:55 RDW 16.6 % (11.6-16.5) H 09/06/16 04:55 Plt Count 143 X10^3/uL (150.0-450.0) L 09/06/16 04:55 MPV 10.2 fL (7.4-11.0) 09/06/16 04:55 Neut % 74.5 % (42.0-75.0) 09/06/16 04:55 Lymph % 13.5 % (21.0-51.0) L 09/06/16 04:55 [place] % 7.4 % (0.0-13.0) 09/06/16 04:55 Eos % 4.1 % (0.9-2.9) H 09/06/16 04:55 Baso % 0.5 % (0.2-1.0) 09/06/16 04:55 Neut # 3.9 x10^3/uL (2.2-4.8) 09/06/16 04:55 Lymph # 0.7 X10^3/uL (1.3-2.9) L 09/06/16 04:55 [place] # 0.4 x10^3/uL (0.3-0.8) 09/06/16 04:55 Eos # 0.2 x10^3/uL (0.0-0.2) 09/06/16 04:55 Baso # 0.0 X10^3/uL (0.0-0.1) 09/06/16 04:55 Absolute Nucleated RBC 0.1 /100WBC 09/06/16 04:55 Sample Site Left radial 09/03/16 10:17 ABG pH 7.430 (7.35-7.45) 09/03/16 10:17 ABG pCO2 40.0 mmHg (35.0-45.0) 09/03/16 10:17 ABG pO2 83.0 mmHg (80.0-100.0) 09/03/16 10:17 ABG HCO3 26.5 mmol/L (22-26) H 09/03/16 10:17 ABG O2 Saturation 96.0 % (90-100) 09/03/16 10:17 ABG Base Excess 2.0 mmol/L (-2.0-2.0) 09/03/16 10:17 Kar Test Pos 09/03/16 10:17 A-a Gradient 17.0 mmHg 09/03/16 10:17 FiO2 21.000 09/03/16 10:17 Blood Gas Comments Emma well aw 09/03/16 10:17 Sodium 142 mmol/L (136-145) 09/06/16 04:55 Corrected Sodium TNP 09/06/16 04:55 Potassium 3.2 mmol/L (3.5-5.1) L 09/06/16 04:55 Chloride 106 mmol/L (98-107) 09/06/16 04:55 Carbon Dioxide 27.6 mmol/L (21-32) 09/06/16 04:55 BUN 18 mg/dL (7-18) 09/06/16 04:55 Creatinine 1.36 mg/dL (0.70-1.30) H 09/06/16 04:55 Est GFR (MDRD) Af Amer > 60 (>60) 09/06/16 04:55 Est GFR (MDRD) Non-Af 59 (>60) 09/06/16 04:55 Glucose 86 mg/dL (65-99) 09/06/16 04:55 Calcium 8.1 mg/dL (8.5-10.1) L 09/06/16 04:55 Corrected Calcium 9.1 mg/dL (8.5-10.1) 09/06/16 04:55 Total Bilirubin 0.70 mg/dL (0.2-1.0) 09/06/16 04:55 AST 23 Units/L (15-37) 09/06/16 04:55 ALT 29 Units/L (12-78) 09/06/16 04:55 Alkaline Phosphatase 82 Units/L (46-116) 09/06/16 04:55 Creatine Kinase 120 Units/L (39-308) 09/02/16 22:45 CK-MB (CK-2) 4.5 ng/mL (0-4.0) H* 09/02/16 22:45 CK/CKMB % Calc 3.8 % (<4) 09/02/16 22:45 Troponin I 0.05 ng/mL (0-1.5) 09/02/16 22:45 Total Protein 6.2 g/dL (6.4-8.2) L 09/06/16 04:55 Albumin 2.8 g/dL (3.4-5.0) L 09/06/16 04:55 Globulin 3.4 g/dL (2.5-4.5) 09/06/16 04:55 Albumin/Globulin Ratio 0.8 Ratio (1.1-2.1) L 09/06/16 04:55 Free PSA Cancelled 09/02/16 15:08 % Free PSA Calc Cancelled 09/02/16 15:08 Total PSA 0.40 ng/mL (0.13-4.0) 09/02/16 15:08 Free T4 1.12 ng/dL (0.76-1.46) 09/02/16 15:08 TSH 3rd Generation 1.596 uIU/mL (0.358-3.74) 09/02/16 15:08 Specimen Type Clean catch urine 09/02/16 15:34 Urine Color Yellow (YELLOW) 09/02/16 15:34 Urine Appearance Hazy (CLEAR) 09/02/16 15:34 Urine pH 6.0 (5.0 - 8.0) 09/02/16 15:34 Ur Specific [place] 1.015 (1.000-1.030) 09/02/16 15:34 Urine Protein 4+ (NEGATIVE) 09/02/16 15:34 Urine Glucose (UA) 4+ (NEGATIVE) 09/02/16 15:34 Urine Ketones Negative (NEGATIVE) 09/02/16 15:34 Urine Occult Blood 2+ (NEGATIVE) 09/02/16 15:34 Urine Nitrite Negative (NEGATIVE) 09/02/16 15:34 Urine Bilirubin Negative (NEGATIVE) 09/02/16 15:34 Urine Urobilinogen Normal (NORMAL) 09/02/16 15:34 Ur Leukocyte Esterase 1+ (NEGATIVE) 09/02/16 15:34 Urine RBC 0-3 /HPF (NEGATIVE) 09/02/16 15:34 Urine WBC 0-2 /HPF (NEGATIVE) 09/02/16 15:34 Ur Squamous Epith Cells Rare /HPF (NEGATIVE) 09/02/16 15:34 Urine Bacteria Trace /HPF (NEGATIVE) 09/02/16 15:34 Urine Mucus Few /HPF (NEGATIVE) 09/02/16 15:34 Ur Culture Indicated? No/not indicated 09/02/16 15:34 - Plan (1) CHF (congestive heart failure) Status: Chronic Qualifiers: Congestive heart failure type: C Congestive heart failure chronicity: C Plan: CHECK CHEST XRAY, CONTINUE TO MONITOR (2) Chest pain Status: Acute Qualifiers: Chest pain type: C Ischemic chest pain type: I Plan: CHECK CARDIAC PROFILE, EKG, CONTINUE TO MONITOR (3) Uncontrolled hypertension Status: Acute Plan: CONTINUE CURRENT BLOOD PRESSURE MEDICATION, CONTINUE TO MONITOR (4) Weakness Status: Acute Plan: IVF, CONTINUE TO MONITOR (5) SOB (shortness of breath) Status: Acute Plan: CHECK ABG, CONTINUE LASIX, CHECK CHEST XRAY, CONTINUE TO MONITOR (6) Dizziness Status: Acute Plan: CONTINUE TO MONITOR (7) Nausea & vomiting Status: Acute Qualifiers: Vomiting type: V Vomiting Intractability: V Plan: start zofran, continue to monitor (8) Hypokalemia Status: Acute Plan: POTASSIUM PROTOCOL, CONTINUE TO MONITOR LABS (9) Hypoalbuminemia Status: Acute Plan: ALBUMIN 1 BOTTLE IV DAILY, CONTINUE TO MONITOR LABS (10) GERD (gastroesophageal reflux disease) Status: Chronic Qualifiers: Esophagitis presence: E Plan: CONTINUE HOME MEDICATION (11) Back pain Status: Chronic Qualifiers: Back pain location: B Chronicity: C Back pain laterality: B Sciatica presence: S Sciatica laterality: S Plan: CONTINUE GABAPENTIN, CONTINUE TO MONITOR (12) Diabetes mellitus, type II Status: Chronic Qualifiers: Diabetes mellitus complication status: with circulatory complication Diabetes mellitus complication detail: D Diabetic retinopathy severity: D Proliferative retinopathy type: P Diabetes mellitus macular edema: D Diabetes mellitus 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 transplanted heart: N Associated angina: A Plan: CONTINUE PLAVIX, CONTINUE TO MONITOR
[2016-09-06] MEDS: K-DUR TAB 20 MEQ PO PRN (14:11)
[2016-09-06] MEDS: HumuLIN R SUBCUT PRN (14:47)
[2016-09-06] MEDS: ALBUMIN HUMAN 25%- 100ML 100 ML IV SCH (15:15)
[2016-09-06] MEDS: KLONOPIN TAB 1 MG PO SCH (21:47)
[2016-09-06] MEDS: NEURONTIN CAP 300 MG PO SCH (21:48)
[2016-09-06] MEDS: SNACK - Diabetic Appropriate PO SCH (21:50)
[2016-09-07] MEDS: NS 1000 ML 1,000 ML IV SCH ×3 (03:00→21:48)
[2016-09-07 05:23] LABS: ALANINE AMINOTRANSFERASE 26 Units/L (12-78); ALBUMIN 2.6 g/dL (3.4-5.0); ALKALINE PHOSPHATASE 75 Units/L (46-116); ASPARTATE AMINO TRANSFERASE 18 Units/L (15-37); BLOOD UREA NITROGEN 17 mg/dL (7-18); CALCIUM 7.9 mg/dL (8.5-10.1); CARBON DIOXIDE 29.5 mmol/L (21-32); CHLORIDE 104 mmol/L (98-107); COR NA(FOR HYPERGLY) 143 mmol/L (136-145); CREATININE 1.29 mg/dL (0.70-1.30); GLUCOSE 164 mg/dL (65-99); SODIUM 141 mmol/L (136-145); TOTAL PROTEIN 5.8 g/dL (6.4-8.2); eGFR BLACK RACES > 60 (>60); eGFR NON BLACK RACES > 60 (>60)
[2016-09-07] MEDS: K-DUR TAB 20 MEQ PO PRN ×2 (05:57→21:22)
[2016-09-07 06:15] LABS: BASOPHILS % (AUTO) 0.6 % (0.2-1.0); EOSINOPHILS # (AUTO) 0.2 x10^3/uL (0.0-0.2); EOSINOPHILS % (AUTO) 3.4 % (0.9-2.9); HEMOGLOBIN 11.9 g/dL (13.5-18.0); LYMPHOCYTES # (AUTO) 0.7 X10^3/uL (1.3-2.9); LYMPHOCYTES % (AUTO) 13.3 % (21.0-51.0); MEAN CORPUSCULAR HGB CONC 34.1 g/dL (33.0-35.0); MEAN PLATELET VOLUME 10.3 fL (7.4-11.0); MONOCYTES # (AUTO) 0.4 x10^3/uL (0.3-0.8); MONOCYTES % (AUTO) 7.7 % (0.0-13.0); NEUTROPHILS # (AUTO) 3.9 x10^3/uL (2.2-4.8); PLATELET COUNT 122 X10^3/uL (150.0-450.0); RED BLOOD COUNT 4.11 X10^6/uL (4.7-6.0); RED CELL DISTRIBUTION WIDTH 16.2 % (11.6-16.5); WHITE BLOOD COUNT 5.1 X10^3/uL (3.6-10.0)
--- NOTE | 2016-09-07 06:41 | RAD ---
HISTORY: Shortness of breath Study: Chest one view Comparison: September 04, 2016 Findings: The heart remains enlarged. There has been improvement in the mild pulmonary venous congestion noted on the prior examination. No interstitial or alveolar edema is present. No alveolar infiltrates or pleural effusions are identified. The bony thorax is unremarkable. IMPRESSION: Cardiomegaly without definite congestive heart failure Reported By:
[2016-09-07 07:17] LABS: ERYTHROCYTE SEDIMENTATION RATE 11 MM/HOUR (0-15)
[2016-09-07] MEDS ORDERED: LEXAPRO ONE (09:52)
[2016-09-07] MEDS: LANTUS SC SCH ×2 (09:59→21:23)
[2016-09-07] MEDS: LASIX PO SCH ×2 (10:00→21:21)
[2016-09-07] MEDS: PROTONIX TAB 40 MG PO SCH (10:00)
[2016-09-07] MEDS: K-DUR TAB 20 MEQ PO SCH (10:00)
[2016-09-07] MEDS: NORVASC TAB 10 MG PO SCH (10:00)
[2016-09-07] MEDS: COREG TAB 25 MG PO SCH ×2 (10:00→21:22)
[2016-09-07] MEDS: ZESTORETIC 20/25 MG PO SCH (10:01)
[2016-09-07] MEDS: LEXAPRO PO SCH (10:01)
[2016-09-07] MEDS: PLAVIX PO SCH (10:01)
[2016-09-07] MEDS: ALBUMIN HUMAN 25%- 100ML 100 ML IV SCH (16:35)
--- NOTE | 2016-09-07 16:45 | PCM.PROG ---
Progress Note - Progress Note for Day of Date: 09/07/16 - Subjective Subjective: Upon morning rounds, patient is lying in bed with eyes open. Patient voices no complaints at this time. Staff reports that patient has been ambulating in hallways with assistance. On examination, lungs are clear to auscultation. bowel sounds are normal in all quadrants. Vitals this morning are 99.5,74,20,93%, 179/92. Labs were WNL with exception of RBC 4.11, HGB 11.9, HCT 35, PLT 122, POTASSIUM 3.6, BUN 17, CREATININE 1.29,CALICUM 7.9, TOTAL PROTEIN 5.8, ALBUMIN 2.6. A chest xray was obtained and reports cardiomegaly without CHF. We are awaiting custodial placement. We will recheck labs and follow up with patient in am. - Past Medical Family Social History Past Med/Fam/Surg Hx: No changes since H&P Allergies: Allergies cephalexin [From Keflex] Allergy (Verified 09/02/16 15:04) clindamycin [From Cleocin] Allergy (Verified 09/02/16 15:05) Influenza Virus Vaccines Allergy (Verified 09/02/16 15:05) MS Cephalexin [From Keflex] Allergy (Verified 02/05/15 12:38) MS Penicillins [Penicillins] Allergy (Verified 02/05/15 12:37) MS Sulfa Antibiotics [Sulfa Antibiotics] Allergy (Verified 02/05/15 12:44) Penicillins Allergy (Verified 09/02/16 16:59) pneumococcal vaccine [From Pneumovax 23] Allergy (Verified 09/02/16 16:59) Sulfa (Sulfonamide Antibiotics) [SULFA] Allergy (Verified 09/02/16 15:05) - Review of Systems ROS: No change since H&P - Vital Signs and I&O's Vital Signs: Temperature 98.3 F Pulse Rate [Left Brachial] 58 Pulse Rate [Right Brachial] 62 Pulse Rate [Bilateral Radial] 60 Respiratory Rate 20 Blood Pressure [Left Arm] 103/65 Blood Pressure [Right Arm] 145/85 Blood Pressure [Right Arm] 137/75 Blood Pressure [Left Arm] 145/77 Blood Pressure 153/93 O2 Sat by Pulse Oximetry 94 Intake and Output: Intake & Output 09/05/16 09/06/16 09/07/16 09/08/16 11:59 11:59 11:59 11:59 Intake Total 1730 5421 2600 800 Output Total 1472 7926 3015 2250 Balance 230 756 1520 -5940 - Physical Exam Oriented: Normal Eyes: Normal. negative: Blurred Vision, Diplopia, Discharge, Pain, Redness, Photophobia, Other Ear: Normal. negative: Right, Left, Swelling, Ecchymosis, Hemotypanum, Abrasion , Laceration Nose: Normal Throat: Normal Respiratory: Normal. negative: Right, Left, Generalized, Superior, Inferior, Diminished, Wheezes, Rales, Rhonchi, OTHER Cardiovascular: Normal. negative: Tachycardia, Bradycardia, Irregular, S3, S4, Systolic, Diastolic, Murmur, Edema, Other : Normal Auscultation: Bowel Sounds: Normal. negative: Bruit, Absent, Increased, Decreased, High Pitched, Other Palpation: Normal Tenderness: Normal Skin: Normal Musculoskeletal: Normal Psychiatric: Normal Mood Description: Calm Affect: Normal Speech Pattern: Clear, Appropriate - Laboratory and Diagnostics Result Diagrams: 09/07/16 03:50 09/07/16 07:40 Labs: Laboratory WBC 5.1 X10^3/uL (3.6-10.0) 09/07/16 03:50 RBC 4.11 X10^6/uL (4.7-6.0) L 09/07/16 03:50 Hgb 11.9 g/dL (13.5-18.0) L 09/07/16 03:50 Hct 35.0 % (42.0-54.0) L 09/07/16 03:50 MCV 85.0 fL (80.0-100.0) 09/07/16 03:50 MCH 29.0 pg (27.0-34.0) 09/07/16 03:50 MCHC 34.1 g/dL (33.0-35.0) 09/07/16 03:50 RDW 16.2 % (11.6-16.5) 09/07/16 03:50 Plt Count 122 X10^3/uL (150.0-450.0) L 09/07/16 03:50 MPV 10.3 fL (7.4-11.0) 09/07/16 03:50 Neut % 75.0 % (42.0-75.0) 09/07/16 03:50 Lymph % 13.3 % (21.0-51.0) L 09/07/16 03:50 [place] % 7.7 % (0.0-13.0) 09/07/16 03:50 Eos % 3.4 % (0.9-2.9) H 09/07/16 03:50 Baso % 0.6 % (0.2-1.0) 09/07/16 03:50 Neut # 3.9 x10^3/uL (2.2-4.8) 09/07/16 03:50 Lymph # 0.7 X10^3/uL (1.3-2.9) L 09/07/16 03:50 [place] # 0.4 x10^3/uL (0.3-0.8) 09/07/16 03:50 Eos # 0.2 x10^3/uL (0.0-0.2) 09/07/16 03:50 Baso # 0.0 X10^3/uL (0.0-0.1) 09/07/16 03:50 Absolute Nucleated RBC 0.1 /100WBC 09/07/16 03:50 ESR 11 MM/HOUR (0-15) 09/07/16 03:50 Sample Site Left radial 09/03/16 10:17 ABG pH 7.430 (7.35-7.45) 09/03/16 10:17 ABG pCO2 40.0 mmHg (35.0-45.0) 09/03/16 10:17 ABG pO2 83.0 mmHg (80.0-100.0) 09/03/16 10:17 ABG HCO3 26.5 mmol/L (22-26) H 09/03/16 10:17 ABG O2 Saturation 96.0 % (90-100) 09/03/16 10:17 ABG Base Excess 2.0 mmol/L (-2.0-2.0) 09/03/16 10:17 Kar Test Pos 09/03/16 10:17 A-a Gradient 17.0 mmHg 09/03/16 10:17 FiO2 21.000 09/03/16 10:17 Blood Gas Comments Emma well aw 09/03/16 10:17 Sodium 141 mmol/L (136-145) 09/07/16 03:50 Corrected Sodium 143 mmol/L (136-145) 09/07/16 03:50 Potassium 3.6 mmol/L (3.5-5.1) 09/07/16 07:40 Chloride 104 mmol/L (98-107) 09/07/16 03:50 Carbon Dioxide 29.5 mmol/L (21-32) 09/07/16 03:50 BUN 17 mg/dL (7-18) 09/07/16 03:50 Creatinine 1.29 mg/dL (0.70-1.30) 09/07/16 03:50 Est GFR (MDRD) Af Amer > 60 (>60) 09/07/16 03:50 Est GFR (MDRD) Non-Af > 60 (>60) 09/07/16 03:50 Glucose 164 mg/dL (65-99) H 09/07/16 03:50 Hemoglobin A1c 10.1 % (4.5-6.2) H 09/06/16 04:55 Calcium 7.9 mg/dL (8.5-10.1) L 09/07/16 03:50 Corrected Calcium 9.0 mg/dL (8.5-10.1) 09/07/16 03:50 Total Bilirubin 0.90 mg/dL (0.2-1.0) 09/07/16 03:50 AST 18 Units/L (15-37) 09/07/16 03:50 ALT 26 Units/L (12-78) 09/07/16 03:50 Alkaline Phosphatase 75 Units/L (46-116) 09/07/16 03:50 Creatine Kinase 120 Units/L (39-308) 09/02/16 22:45 CK-MB (CK-2) 4.5 ng/mL (0-4.0) H* 09/02/16 22:45 CK/CKMB % Calc 3.8 % (<4) 09/02/16 22:45 Troponin I 0.05 ng/mL (0-1.5) 09/02/16 22:45 C-Reactive Protein 6.50 mg/L (0-3.0) H 09/07/16 03:50 Total Protein 5.8 g/dL (6.4-8.2) L 09/07/16 03:50 Albumin 2.6 g/dL (3.4-5.0) L 09/07/16 03:50 Globulin 3.2 g/dL (2.5-4.5) 09/07/16 03:50 Albumin/Globulin Ratio 0.8 Ratio (1.1-2.1) L 09/07/16 03:50 Free PSA Cancelled 09/02/16 15:08 % Free PSA Calc Cancelled 09/02/16 15:08 Total PSA 0.40 ng/mL (0.13-4.0) 09/02/16 15:08 Free T4 1.12 ng/dL (0.76-1.46) 09/02/16 15:08 TSH 3rd Generation 1.596 uIU/mL (0.358-3.74) 09/02/16 15:08 Specimen Type Clean catch urine 09/02/16 15:34 Urine Color Yellow (YELLOW) 09/02/16 15:34 Urine Appearance Hazy (CLEAR) 09/02/16 15:34 Urine pH 6.0 (5.0 - 8.0) 09/02/16 15:34 Ur Specific [place] 1.015 (1.000-1.030) 09/02/16 15:34 Urine Protein 4+ (NEGATIVE) 09/02/16 15:34 Urine Glucose (UA) 4+ (NEGATIVE) 09/02/16 15:34 Urine Ketones Negative (NEGATIVE) 09/02/16 15:34 Urine Occult Blood 2+ (NEGATIVE) 09/02/16 15:34 Urine Nitrite Negative (NEGATIVE) 09/02/16 15:34 Urine Bilirubin Negative (NEGATIVE) 09/02/16 15:34 Urine Urobilinogen Normal (NORMAL) 09/02/16 15:34 Ur Leukocyte Esterase 1+ (NEGATIVE) 09/02/16 15:34 Urine RBC 0-3 /HPF (NEGATIVE) 09/02/16 15:34 Urine WBC 0-2 /HPF (NEGATIVE) 09/02/16 15:34 Ur Squamous Epith Cells Rare /HPF (NEGATIVE) 09/02/16 15:34 Urine Bacteria Trace /HPF (NEGATIVE) 09/02/16 15:34 Urine Mucus Few /HPF (NEGATIVE) 09/02/16 15:34 Ur Culture Indicated? No/not indicated 09/02/16 15:34 - Plan (1) CHF (congestive heart failure) Status: Chronic Qualifiers: Congestive heart failure type: C Congestive heart failure chronicity: C Plan: CHECK CHEST XRAY, CONTINUE TO MONITOR (2) Chest pain Status: Resolved Qualifiers: Chest pain type: C Ischemic chest pain type: I Plan: CONTINUE TO MONITOR (3) Uncontrolled hypertension Status: Acute Plan: CONTINUE CURRENT BLOOD PRESSURE MEDICATION, CONTINUE TO MONITOR (4) Weakness Status: Acute Plan: IVF, CONTINUE TO MONITOR (5) SOB (shortness of breath) Status: Acute Plan: CONTINUE TO MONITOR (6) Dizziness Status: Acute Plan: CONTINUE TO MONITOR (7) Nausea & vomiting Status: Acute Qualifiers: Vomiting type: V Vomiting Intractability: V Plan: continue to monitor (8) Hypokalemia Status: Acute Plan: POTASSIUM PROTOCOL, CONTINUE TO MONITOR LABS (9) Hypoalbuminemia Status: Acute Plan: ALBUMIN 1 BOTTLE IV DAILY, CONTINUE TO MONITOR LABS (10) GERD (gastroesophageal reflux disease) Status: Chronic Qualifiers: Esophagitis presence: E Plan: CONTINUE HOME MEDICATION (11) Back pain Status: Chronic Qualifiers: Back pain location: B Chronicity: C Back pain laterality: B Sciatica presence: S Sciatica laterality: S Plan: CONTINUE GABAPENTIN, CONTINUE TO MONITOR (12) Diabetes mellitus, type II Status: Chronic Qualifiers: Diabetes mellitus complication status: with circulatory complication Diabetes mellitus complication detail: D Diabetic retinopathy severity: D Proliferative retinopathy type: P Diabetes mellitus macular edema: D Diabetes mellitus prison insulin use: with prison use Laterality: L Chronic kidney disease stage: C Plan: CONTINUE LANTUS , SSI, OTBS, CONTINUE TO MONITOR (13) Coronary artery disease Status: Chronic Qualifiers: Coronary Disease-Associated Artery/Lesion type: C [place] vs. transplanted heart: N Associated angina: A Plan: CONTINUE PLAVIX, CONTINUE TO MONITOR
[2016-09-07] MEDS: NEURONTIN CAP 300 MG PO SCH (21:22)
[2016-09-07] MEDS: AMBIEN PO SCH (21:22)
[2016-09-07] MEDS: SNACK - Diabetic Appropriate PO SCH (21:22)
[2016-09-08 04:55] LABS: BASOPHILS % (AUTO) 0.5 % (0.2-1.0); EOSINOPHILS # (AUTO) 0.2 x10^3/uL (0.0-0.2); EOSINOPHILS % (AUTO) 3.2 % (0.9-2.9); HEMATOCRIT 35.1 % (42.0-54.0); HEMOGLOBIN 11.8 g/dL (13.5-18.0); LYMPHOCYTES # (AUTO) 0.6 X10^3/uL (1.3-2.9); LYMPHOCYTES % (AUTO) 13.7 % (21.0-51.0); MEAN CORPUSCULAR HEMOGLOBIN 28.5 pg (27.0-34.0); MEAN CORPUSCULAR HGB CONC 33.6 g/dL (33.0-35.0); MEAN PLATELET VOLUME 10.3 fL (7.4-11.0); MONOCYTES # (AUTO) 0.5 x10^3/uL (0.3-0.8); NEUTROPHILS # (AUTO) 3.4 x10^3/uL (2.2-4.8); NEUTROPHILS % (AUTO) 71.6 % (42.0-75.0); PLATELET COUNT 120 X10^3/uL (150.0-450.0); RED BLOOD COUNT 4.13 X10^6/uL (4.7-6.0); RED CELL DISTRIBUTION WIDTH 16.2 % (11.6-16.5); WHITE BLOOD COUNT 4.8 X10^3/uL (3.6-10.0)
[2016-09-08 05:09] LABS: ALANINE AMINOTRANSFERASE 25 Units/L (12-78); ALBUMIN 2.5 g/dL (3.4-5.0); ALKALINE PHOSPHATASE 73 Units/L (46-116); ASPARTATE AMINO TRANSFERASE 21 Units/L (15-37); BLOOD UREA NITROGEN 17 mg/dL (7-18); CARBON DIOXIDE 29.5 mmol/L (21-32); CHLORIDE 104 mmol/L (98-107); COR CA(FOR HYPOALB) 9.2 mg/dL (8.5-10.1); COR NA(FOR HYPERGLY) 142 mmol/L (136-145); CREATININE 1.43 mg/dL (0.70-1.30); GLUCOSE 139 mg/dL (65-99); SODIUM 141 mmol/L (136-145); TOTAL PROTEIN 5.8 g/dL (6.4-8.2); eGFR BLACK RACES > 60 (>60); eGFR NON BLACK RACES 56 (>60)
[2016-09-08] MEDS: K-DUR TAB 20 MEQ PO PRN (05:15)
[2016-09-08 05:45] LABS: ERYTHROCYTE SEDIMENTATION RATE 12 MM/HOUR (0-15)
[2016-09-08] MEDS ORDERED: MAGNESIUM SULFATE 1 GM/100 mL PREMIX 1 GM/100 ML BAG IV SCH (06:00)
[2016-09-08] MEDS ORDERED: LEXAPRO ONE (08:34)
[2016-09-08] MEDS: LANTUS SC SCH ×2 (08:44→21:05)
[2016-09-08] MEDS: ZESTORETIC 20/25 MG PO SCH (08:46)
[2016-09-08] MEDS: PLAVIX PO SCH (08:46)
[2016-09-08] MEDS: LEXAPRO PO SCH (08:47)
[2016-09-08] MEDS: PROTONIX TAB 40 MG PO SCH (08:47)
[2016-09-08] MEDS: NORVASC TAB 10 MG PO SCH (08:47)
[2016-09-08] MEDS: COREG TAB 25 MG PO SCH ×2 (08:47→21:06)
[2016-09-08] MEDS: LASIX PO SCH ×2 (08:47→21:06)
[2016-09-08] MEDS: K-DUR TAB 20 MEQ PO SCH (08:47)
[2016-09-08] MEDS: MILK OF MAGNESIA PO SCH (10:35)
--- NOTE | 2016-09-08 11:47 | PCM.PROG ---
Progress Note - Progress Note for Day of Date: 09/08/16 - Subjective Subjective: Upon morning rounds, patient is lying in bed with eyes open. Patient voices no complaints. Staff reports that patient has been ambulating in hallways with assistance. On examination, lungs are clear to auscultation. bowel sounds are normal in all quadrants. Vitals this morning are 97.9,61,20,98% , 140/96. Labs were WNL with exception of RBC 4.13, HGB 11.8, HCT 35.1, PLT 120 , POTASSIUM 3.2, BUN 17, CREATININE 1.43,CALICUM 8.0, TOTAL PROTEIN 5.8, ALBUMIN 2.5, CRP 32.9. A chest xray was obtained and reports cardiomegaly without CHF. We are awaiting a peer to peer review for chcf placement. We will continue to monitor and follow up with patient. - Past Medical Family Social History Past Med/Fam/Surg Hx: No changes since H&P Allergies: Allergies cephalexin [From Keflex] Allergy (Verified 09/02/16 15:04) clindamycin [From Cleocin] Allergy (Verified 09/02/16 15:05) Influenza Virus Vaccines Allergy (Verified 09/02/16 15:05) MS Cephalexin [From Keflex] Allergy (Verified 02/05/15 12:38) MS Penicillins [Penicillins] Allergy (Verified 02/05/15 12:37) MS Sulfa Antibiotics [Sulfa Antibiotics] Allergy (Verified 02/05/15 12:44) Penicillins Allergy (Verified 09/02/16 16:59) pneumococcal vaccine [From Pneumovax 23] Allergy (Verified 09/02/16 16:59) Sulfa (Sulfonamide Antibiotics) [SULFA] Allergy (Verified 09/02/16 15:05) - Review of Systems ROS: No change since H&P - Vital Signs and I&O's Vital Signs: Temperature 97.9 F Pulse Rate [Left Brachial] 58 Pulse Rate [Right Brachial] 61 Pulse Rate [Bilateral Radial] 60 Respiratory Rate 20 Blood Pressure [Left Arm] 103/65 Blood Pressure [Right Arm] 140/96 Blood Pressure [Right Arm] 137/75 Blood Pressure [Left Arm] 145/77 Blood Pressure 153/93 O2 Sat by Pulse Oximetry 98 Intake and Output: Intake & Output 07/08/09/06/16 09/07/16 09/08/16 11:59 11:59 11:59 11:59 Intake Total 1730 5421 2600 1800 Output Total 5473 0735 4172 3572 Balance 230 [phone] - Physical Exam Oriented: Normal Eyes: Normal. negative: Blurred Vision, Diplopia, Discharge, Pain, Redness, Photophobia, Other Ear: Normal. negative: Right, Left, Swelling, Ecchymosis, Hemotypanum, Abrasion , Laceration Nose: Normal Throat: Normal Respiratory: Normal. negative: Right, Left, Generalized, Superior, Inferior, Diminished, Wheezes, Rales, Rhonchi, OTHER Cardiovascular: Normal. negative: Tachycardia, Bradycardia, Irregular, S3, S4, Systolic, Diastolic, Murmur, Edema, Other : Normal Auscultation: Bowel Sounds: Normal. negative: Bruit, Absent, Increased, Decreased, High Pitched, Other Palpation: Normal Tenderness: Normal Skin: Normal Musculoskeletal: Normal Psychiatric: Normal Mood Description: Calm Affect: Normal Speech Pattern: Clear, Appropriate - Laboratory and Diagnostics Result Diagrams: 09/08/16 03:40 09/08/16 08:30 Labs: Laboratory WBC 4.8 X10^3/uL (3.6-10.0) 09/08/16 03:40 RBC 4.13 X10^6/uL (4.7-6.0) L 09/08/16 03:40 Hgb 11.8 g/dL (13.5-18.0) L 09/08/16 03:40 Hct 35.1 % (42.0-54.0) L 09/08/16 03:40 MCV 85.0 fL (80.0-100.0) 09/08/16 03:40 MCH 28.5 pg (27.0-34.0) 09/08/16 03:40 MCHC 33.6 g/dL (33.0-35.0) 09/08/16 03:40 RDW 16.2 % (11.6-16.5) 09/08/16 03:40 Plt Count 120 X10^3/uL (150.0-450.0) L 09/08/16 03:40 MPV 10.3 fL (7.4-11.0) 09/08/16 03:40 Neut % 71.6 % (42.0-75.0) 09/08/16 03:40 Lymph % 13.7 % (21.0-51.0) L 09/08/16 03:40 [place] % 11.0 % (0.0-13.0) 09/08/16 03:40 Eos % 3.2 % (0.9-2.9) H 09/08/16 03:40 Baso % 0.5 % (0.2-1.0) 09/08/16 03:40 Neut # 3.4 x10^3/uL (2.2-4.8) 09/08/16 03:40 Lymph # 0.6 X10^3/uL (1.3-2.9) L 09/08/16 03:40 [place] # 0.5 x10^3/uL (0.3-0.8) 09/08/16 03:40 Eos # 0.2 x10^3/uL (0.0-0.2) 09/08/16 03:40 Baso # 0.0 X10^3/uL (0.0-0.1) 09/08/16 03:40 Absolute Nucleated RBC 0.2 /100WBC 09/08/16 03:40 ESR 12 MM/HOUR (0-15) 09/08/16 03:40 Sample Site Left radial 09/03/16 10:17 ABG pH 7.430 (7.35-7.45) 09/03/16 10:17 ABG pCO2 40.0 mmHg (35.0-45.0) 09/03/16 10:17 ABG pO2 83.0 mmHg (80.0-100.0) 09/03/16 10:17 ABG HCO3 26.5 mmol/L (22-26) H 09/03/16 10:17 ABG O2 Saturation 96.0 % (90-100) 09/03/16 10:17 ABG Base Excess 2.0 mmol/L (-2.0-2.0) 09/03/16 10:17 Kar Test Pos 09/03/16 10:17 A-a Gradient 17.0 mmHg 09/03/16 10:17 FiO2 21.000 09/03/16 10:17 Blood Gas Comments Emma well aw 09/03/16 10:17 Sodium 141 mmol/L (136-145) 09/08/16 03:40 Corrected Sodium 142 mmol/L (136-145) 09/08/16 03:40 Potassium 3.8 mmol/L (3.5-5.1) 09/08/16 08:30 Chloride 104 mmol/L (98-107) 09/08/16 03:40 Carbon Dioxide 29.5 mmol/L (21-32) 09/08/16 03:40 BUN 17 mg/dL (7-18) 09/08/16 03:40 Creatinine 1.43 mg/dL (0.70-1.30) H 09/08/16 03:40 Est GFR (MDRD) Af Amer > 60 (>60) 09/08/16 03:40 Est GFR (MDRD) Non-Af 56 (>60) L 09/08/16 03:40 Glucose 139 mg/dL (65-99) H 09/08/16 03:40 Hemoglobin A1c 10.1 % (4.5-6.2) H 09/06/16 04:55 Calcium 8.0 mg/dL (8.5-10.1) L 09/08/16 03:40 Corrected Calcium 9.2 mg/dL (8.5-10.1) 09/08/16 03:40 Magnesium 1.6 mg/dL (1.7-2.9) L 09/08/16 03:40 Total Bilirubin 0.80 mg/dL (0.2-1.0) 09/08/16 03:40 AST 21 Units/L (15-37) 09/08/16 03:40 ALT 25 Units/L (12-78) 09/08/16 03:40 Alkaline Phosphatase 73 Units/L (46-116) 09/08/16 03:40 Creatine Kinase 120 Units/L (39-308) 09/02/16 22:45 CK-MB (CK-2) 4.5 ng/mL (0-4.0) H* 09/02/16 22:45 CK/CKMB % Calc 3.8 % (<4) 09/02/16 22:45 Troponin I 0.05 ng/mL (0-1.5) 09/02/16 22:45 C-Reactive Protein 32.90 mg/L (0-3.0) H 09/08/16 03:40 Total Protein 5.8 g/dL (6.4-8.2) L 09/08/16 03:40 Albumin 2.5 g/dL (3.4-5.0) L 09/08/16 03:40 Globulin 3.3 g/dL (2.5-4.5) 09/08/16 03:40 Albumin/Globulin Ratio 0.8 Ratio (1.1-2.1) L 09/08/16 03:40 Free PSA Cancelled 09/02/16 15:08 % Free PSA Calc Cancelled 09/02/16 15:08 Total PSA 0.40 ng/mL (0.13-4.0) 09/02/16 15:08 Free T4 1.12 ng/dL (0.76-1.46) 09/02/16 15:08 TSH 3rd Generation 1.596 uIU/mL (0.358-3.74) 09/02/16 15:08 Specimen Type Clean catch urine 09/02/16 15:34 Urine Color Yellow (YELLOW) 09/02/16 15:34 Urine Appearance Hazy (CLEAR) 09/02/16 15:34 Urine pH 6.0 (5.0 - 8.0) 09/02/16 15:34 Ur Specific [place] 1.015 (1.000-1.030) 09/02/16 15:34 Urine Protein 4+ (NEGATIVE) 09/02/16 15:34 Urine Glucose (UA) 4+ (NEGATIVE) 09/02/16 15:34 Urine Ketones Negative (NEGATIVE) 09/02/16 15:34 Urine Occult Blood 2+ (NEGATIVE) 09/02/16 15:34 Urine Nitrite Negative (NEGATIVE) 09/02/16 15:34 Urine Bilirubin Negative (NEGATIVE) 09/02/16 15:34 Urine Urobilinogen Normal (NORMAL) 09/02/16 15:34 Ur Leukocyte Esterase 1+ (NEGATIVE) 09/02/16 15:34 Urine RBC 0-3 /HPF (NEGATIVE) 09/02/16 15:34 Urine WBC 0-2 /HPF (NEGATIVE) 09/02/16 15:34 Ur Squamous Epith Cells Rare /HPF (NEGATIVE) 09/02/16 15:34 Urine Bacteria Trace /HPF (NEGATIVE) 09/02/16 15:34 Urine Mucus Few /HPF (NEGATIVE) 09/02/16 15:34 Ur Culture Indicated? No/not indicated 09/02/16 15:34 - Plan (1) CHF (congestive heart failure) Status: Acute Qualifiers: Congestive heart failure type: unspecified congestive heart failure type Congestive heart failure chronicity: chronic Qualified Code(s): I50.9 - Heart failure, unspecified Plan: CHECK CHEST XRAY, CONTINUE TO MONITOR (2) Chest pain Status: Resolved Qualifiers: Chest pain type: C Ischemic chest pain type: I Plan: CONTINUE TO MONITOR (3) Uncontrolled hypertension Status: Acute Plan: CONTINUE CURRENT BLOOD PRESSURE MEDICATION, CONTINUE TO MONITOR (4) Weakness Status: Acute Plan: IVF, CONTINUE TO MONITOR (5) SOB (shortness of breath) Status: Acute Plan: CONTINUE TO MONITOR (6) Dizziness Status: Acute Plan: CONTINUE TO MONITOR (7) Nausea & vomiting Status: Acute Qualifiers: Vomiting type: V Vomiting Intractability: V Plan: continue to monitor (8) Hypokalemia Status: Acute Plan: POTASSIUM PROTOCOL, CONTINUE TO MONITOR LABS (9) Hypoalbuminemia Status: Acute Plan: ALBUMIN 1 BOTTLE IV DAILY, CONTINUE TO MONITOR LABS (10) GERD (gastroesophageal reflux disease) Status: Chronic Qualifiers: Esophagitis presence: E Plan: CONTINUE HOME MEDICATION (11) Back pain Status: Chronic Qualifiers: Back pain location: B Chronicity: C Back pain laterality: B Sciatica presence: S Sciatica laterality: S Plan: CONTINUE GABAPENTIN, CONTINUE TO MONITOR (12) Diabetes mellitus, type II Status: Chronic Qualifiers: Diabetes mellitus complication status: with circulatory complication Diabetes mellitus complication detail: D Diabetic retinopathy severity: D Proliferative retinopathy type: P Diabetes mellitus macular edema: D 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 transplanted heart: N Associated angina: A Plan: CONTINUE PLAVIX, CONTINUE TO MONITOR
[2016-09-08] MEDS ORDERED: COLACE CAP 100 MG PO SCH (21:00)
[2016-09-08] MEDS: SNACK - Diabetic Appropriate PO SCH (21:04)
[2016-09-08] MEDS: MAALOX or MYLANTA PO PRN (21:05)
[2016-09-08] MEDS: KLONOPIN TAB 1 MG PO SCH (21:06)
[2016-09-08] MEDS: NEURONTIN CAP 300 MG PO SCH (21:07)
[2016-09-08] MEDS: NS 1000 ML 1,000 ML IV SCH (22:33)
[2016-09-09] MEDS: NS 1000 ML 1,000 ML IV SCH (00:07)
[2016-09-09 05:24] LABS: BASOPHILS # (AUTO) 0.1 X10^3/uL (0.0-0.1); BASOPHILS % (AUTO) 1.1 % (0.2-1.0); EOSINOPHILS # (AUTO) 0.2 x10^3/uL (0.0-0.2); EOSINOPHILS % (AUTO) 3.4 % (0.9-2.9); HEMATOCRIT 37.2 % (42.0-54.0); HEMOGLOBIN 12.5 g/dL (13.5-18.0); LYMPHOCYTES # (AUTO) 0.9 X10^3/uL (1.3-2.9); LYMPHOCYTES % (AUTO) 12.7 % (21.0-51.0); MEAN CORPUSCULAR HEMOGLOBIN 28.7 pg (27.0-34.0); MEAN CORPUSCULAR HGB CONC 33.6 g/dL (33.0-35.0); MEAN CORPUSCULAR VOLUME 85.2 fL (80.0-100.0); MEAN PLATELET VOLUME 10.2 fL (7.4-11.0); MONOCYTES # (AUTO) 0.7 x10^3/uL (0.3-0.8); MONOCYTES % (AUTO) 9.8 % (0.0-13.0); NEUTROPHILS # (AUTO) 5.3 x10^3/uL (2.2-4.8); PLATELET COUNT 142 X10^3/uL (150.0-450.0); RED BLOOD COUNT 4.37 X10^6/uL (4.7-6.0); RED CELL DISTRIBUTION WIDTH 16.1 % (11.6-16.5); WHITE BLOOD COUNT 7.3 X10^3/uL (3.6-10.0)
[2016-09-09 05:33] LABS: ALANINE AMINOTRANSFERASE 25 Units/L (12-78); ALBUMIN 2.7 g/dL (3.4-5.0); ALKALINE PHOSPHATASE 77 Units/L (46-116); ASPARTATE AMINO TRANSFERASE 21 Units/L (15-37); BLOOD UREA NITROGEN 18 mg/dL (7-18); CALCIUM 8.4 mg/dL (8.5-10.1); CARBON DIOXIDE 32.2 mmol/L (21-32); CHLORIDE 103 mmol/L (98-107); COR CA(FOR HYPOALB) 9.4 mg/dL (8.5-10.1); CREATININE 1.46 mg/dL (0.70-1.30); GLUCOSE 59 mg/dL (65-99); SODIUM 141 mmol/L (136-145); TOTAL PROTEIN 6.3 g/dL (6.4-8.2); eGFR BLACK RACES > 60 (>60); eGFR NON BLACK RACES 55 (>60)
[2016-09-09 06:16] LABS: ERYTHROCYTE SEDIMENTATION RATE 17 MM/HOUR (0-15)
[2016-09-09] MEDS ORDERED: LEXAPRO ONE (07:39)
[2016-09-09] MEDS: ZESTORETIC 20/25 MG PO SCH (08:27)
[2016-09-09] MEDS: NORVASC TAB 10 MG PO SCH (08:28)
[2016-09-09] MEDS: K-DUR TAB 20 MEQ PO SCH (08:28)
[2016-09-09] MEDS: LEXAPRO PO SCH (08:28)
[2016-09-09] MEDS: PROTONIX TAB 40 MG PO SCH (08:29)
[2016-09-09] MEDS: COREG TAB 25 MG PO SCH (08:29)
[2016-09-09] MEDS: LASIX PO SCH (08:29)
[2016-09-09] MEDS: PLAVIX PO SCH (08:29)
[2016-09-09] MEDS: ALBUMIN HUMAN 25%- 100ML 100 ML IV SCH (08:34)
[2016-09-09] MEDS: MILK OF MAGNESIA PO SCH (08:34)
[2016-09-09] MEDS ORDERED: LANTUS SC SCH (09:00)
[2016-09-09] MEDS: HumuLIN R SUBCUT PRN (12:07)
[2016-09-09 12:11] VITALS: BP 165/93
== END 2016-09-09 14:55 | disposition home or self-care (01) ==
LOC: MED/SURG 12:40 → UNDOADMOB 12:40 → MERGE 13:10 → MED/SURG 13:10
PROVIDERS: ADMIT Internal Medicine; ATTEND Internal Medicine
DX: I50.9 Heart failure, unspecified (principal); R53.1 Weakness; R42 Dizziness and giddiness; I10 Essential (primary) hypertension; E11.65 Type 2 diabetes mellitus with hyperglycemia; R06.02 Shortness of breath; R26.89 Other abnormalities of gait and mobility; R94.31 Abnormal electrocardiogram [ECG] [EKG]; R53.83 Other fatigue; R07.89 Other chest pain; I51.7 Cardiomegaly; I25.10 Atherosclerotic heart disease of native coronary artery without angina pectoris; K21.9 Gastro-esophageal reflux disease without esophagitis; M54.89 Other dorsalgia; R11.2 Nausea with vomiting, unspecified; E87.6 Hypokalemia; E88.09 Other disorders of plasma-protein metabolism, not elsewhere classified; Z79.899 Other long term (current) drug therapy; Z79.4 Long term (current) use of insulin
CPT/HCPCS: 36415; 36600; 71010; 80053; 81001; 82550; 82553; 82803; 83036; 83735; 84132; 84153; 84439; 84443; 84484; 85025; 85652; 86140; 93005; 93306; 94660; A4222; A4618; A7030; P9047; G0378; J1815; J1940; J2405

== ENCOUNTER 2017-03-25 15:22 | Observation (INO) | payer OTHER ==
[2017-03-25] MEDS ORDERED: TYLENOL 325 MG TAB PO PRN (16:44)
[2017-03-25] MEDS ORDERED: NS 1/2 1000 ML IV 1,000 ML IV ONE (17:04)
[2017-03-25] MEDS ORDERED: SALINE 3% 15 ML NEB TX ONE (17:07)
[2017-03-25 17:53] LABS: BASOPHILS % (AUTO) 0.6 % (0.2-1.0); EOSINOPHILS # (AUTO) 0.1 x10^3/uL (0.0-0.2); EOSINOPHILS % (AUTO) 1.4 % (0.9-2.9); HEMATOCRIT 46.2 % (42.0-54.0); HEMOGLOBIN 15.2 g/dL (13.5-18.0); LYMPHOCYTES # (AUTO) 0.6 X10^3/uL (1.3-2.9); MEAN CORPUSCULAR HEMOGLOBIN 25.7 pg (27.0-34.0); MEAN CORPUSCULAR HGB CONC 32.9 g/dL (33.0-35.0); MONOCYTES # (AUTO) 0.6 x10^3/uL (0.3-0.8); MONOCYTES % (AUTO) 11.5 % (0.0-13.0); NEUTROPHILS # (AUTO) 3.6 x10^3/uL (2.2-4.8); NEUTROPHILS % (AUTO) 73.5 % (42.0-75.0); PLATELET COUNT 160 X10^3/uL (150.0-450.0); RED BLOOD COUNT 5.93 X10^6/uL (4.7-6.0); RED CELL DISTRIBUTION WIDTH 18.4 % (11.6-16.5); WHITE BLOOD COUNT 4.9 X10^3/uL (3.6-10.0)
[2017-03-25 17:57] LABS: ALBUMIN 2.3 g/dL (3.4-5.0); CALCIUM 8.8 mg/dL (8.5-10.1); CARBON DIOXIDE 30.2 mmol/L (21-32); COR CA(FOR HYPOALB) 10.2 mg/dL (8.5-10.1); CREATININE 1.7 mg/dL (0.70-1.30)
[2017-03-25 18:03] LABS: PLATELET MORPHOLOGY COMMENT NORMAL (NORMAL); POIKILOCYTOSIS 1+
[2017-03-25 18:04] LABS: ANISOCYTOSIS 1+
[2017-03-25] MEDS: LEVAQUIN PREMIX IV 750 MG 750 MG/150 ML BAG IV SCH (18:14)
[2017-03-25] MEDS: TUSSIONEX PENNKINETIC SUSP PO SCH (18:15)
[2017-03-25] MEDS: NS 1/2 1000 ML IV 1,000 ML IV SCH (18:15)
[2017-03-25] MEDS: ROBITUSSIN DM PO SCH ×2 (18:15→20:42)
[2017-03-25 18:30] VITALS: BMI 29.1
[2017-03-25] MEDS: TAMIFLU PO SCH (20:42)
[2017-03-25] MEDS: DUONEB 0.5 MG/3 MG NEB SCH (20:43)
--- NOTE | 2017-03-25 22:06 | RAD ---
CHEST RADIOGRAPHS PA AND LATERAL VIEWS CLINICAL HISTORY: 51-year-old male with cough and suspected pneumonia. COMPARISON: Chest radiograph 09/07/2016. FINDINGS: The cardiopericardial silhouette is stably enlarged with focal patchy consolidation within the left upper lobe superimposed upon chronic prominence of the interstitium and perihilar lung najma ings. There is no focal consolidation, pleural effusion or pneumothorax. The lungs are well inflated. Pulmonary vascularity is normal. Imaged osseous structures are intact. Soft tissues are unremarkable . IMPRESSION: Findings concerning for left upper lobe pneumonia, follow-up to resolution and correlate clinically. Reported By:
[2017-03-25] MEDS ORDERED: RESTORIL CAP 15 MG PO PRN (22:18)
[2017-03-26] MEDS: DUONEB 0.5 MG/3 MG NEB SCH ×6 (00:35→21:40)
[2017-03-26] MEDS ORDERED: NS 1/2 1000 ML IV 1,000 ML IV ONE (04:38)
[2017-03-26] MEDS: TUSSIONEX PENNKINETIC SUSP PO SCH ×2 (04:50→17:54)
[2017-03-26] MEDS: NS 1/2 1000 ML IV 1,000 ML IV SCH ×4 (04:51→23:06)
[2017-03-26 06:38] LABS: BASOPHILS # (AUTO) 0.1 X10^3/uL (0.0-0.1); BASOPHILS % (AUTO) 1.6 % (0.2-1.0); EOSINOPHILS # (AUTO) 0.1 x10^3/uL (0.0-0.2); EOSINOPHILS % (AUTO) 3.3 % (0.9-2.9); HEMATOCRIT 40.8 % (42.0-54.0); HEMOGLOBIN 13.6 g/dL (13.5-18.0); LYMPHOCYTES # (AUTO) 0.7 X10^3/uL (1.3-2.9); LYMPHOCYTES % (AUTO) 19.5 % (21.0-51.0); MEAN CORPUSCULAR HEMOGLOBIN 25.8 pg (27.0-34.0); MEAN CORPUSCULAR HGB CONC 33.3 g/dL (33.0-35.0); MEAN CORPUSCULAR VOLUME 77.3 fL (80.0-100.0); MONOCYTES # (AUTO) 0.5 x10^3/uL (0.3-0.8); MONOCYTES % (AUTO) 14.5 % (0.0-13.0); NEUTROPHILS # (AUTO) 2.3 x10^3/uL (2.2-4.8); NEUTROPHILS % (AUTO) 61.1 % (42.0-75.0); PLATELET COUNT 115 X10^3/uL (150.0-450.0); RED BLOOD COUNT 5.28 X10^6/uL (4.7-6.0); RED CELL DISTRIBUTION WIDTH 18.2 % (11.6-16.5); WHITE BLOOD COUNT 3.7 X10^3/uL (3.6-10.0)
[2017-03-26 06:45] LABS: CALCIUM 8.2 mg/dL (8.5-10.1); CARBON DIOXIDE 29.9 mmol/L (21-32); COR CA(FOR HYPOALB) 9.8 mg/dL (8.5-10.1); CREATININE 1.6 mg/dL (0.70-1.30); TOTAL PROTEIN 6.2 g/dL (6.4-8.2)
[2017-03-26] MEDS ORDERED: MAGNESIUM SULFATE 1 GM/100 mL PREMIX 1 GM/100 ML BAG IV PRN (06:52)
[2017-03-26] MEDS ORDERED: MAG-OX TAB PO PRN (06:52)
[2017-03-26] MEDS ORDERED: K-RIDER 10 MEQ/NS 100 ML 10 MEQ/100 ML BAG IV PRN (06:52)
[2017-03-26] MEDS ORDERED: POTASSIUM CHLORIDE LIQ 20 MEQ UDC PO PRN (06:52)
[2017-03-26] MEDS ORDERED: POTASSIUM CHL 60 MEQ/NS 0.45% 500 ML IV PRN (06:52)
[2017-03-26] MEDS ORDERED: K-LYTE EFFERVESCENT PO PRN (06:52)
--- NOTE | 2017-03-26 06:58 | RAD ---
Examination: AP chest History: Pneumonia and cough Comparison 03/25/2017 Findings: Continued cardiac enlargement and central vascular distention. Persistent but improving lef t upper lobe infiltrate. No new abnormality noted. Impression: Interval improvement. Continued follow-up is indicated. Reported By:
[2017-03-26 07:16] LABS: HYPOCHROMASIA SLIGHT; PLATELET MORPHOLOGY COMMENT ABNORMAL (NORMAL)
[2017-03-26 07:17] LABS: ANISOCYTOSIS 1+; MICROCYTOSIS SLIGHT
[2017-03-26] MEDS: LEVAQUIN PREMIX IV 750 MG 750 MG/150 ML BAG IV SCH (09:57)
[2017-03-26] MEDS: ROBITUSSIN DM PO SCH ×4 (09:58→20:35)
[2017-03-26] MEDS: TAMIFLU PO SCH ×2 (09:58→20:33)
[2017-03-26] MEDS: HumuLIN R SUBCUT PRN ×2 (12:54→17:54)
[2017-03-26] MEDS: POTASSIUM CHL 40 MEQ/NS 0.45% 500 ML IV PRN (13:02)
[2017-03-26] MEDS: COREG TAB 25 MG PO SCH ×2 (13:17→20:33)
[2017-03-26] MEDS: NORVASC TAB 10 MG PO SCH (13:17)
[2017-03-26] MEDS: LASIX PO SCH ×2 (13:17→20:33)
[2017-03-26] MEDS: PLAVIX PO SCH (13:17)
[2017-03-26] MEDS: LANTUS SC SCH ×2 (13:18→20:47)
[2017-03-26] MEDS: PROTONIX TAB 40 MG PO SCH (13:19)
[2017-03-26] MEDS ORDERED: NEURONTIN CAP 300 MG PO SCH (14:00)
[2017-03-26] MEDS: ZESTORETIC 20/25 MG PO SCH (14:09)
[2017-03-26] MEDS: SNACK - Diabetic Appropriate PO SCH (20:10)
[2017-03-26] MEDS: NEURONTIN TAB 600 MG PO SCH (20:32)
[2017-03-26] MEDS: RESTORIL CAP 30 MG PO SCH (20:33)
[2017-03-26] MEDS: KLONOPIN TAB 1 MG PO SCH (20:33)
--- NOTE | 2017-03-26 23:00 | PCM.PROG ---
Progress Note - Progress Note for Day of Date: 03/26/17 - Subjective Subjective: WAS A DIRECT ADMISSION YESTERDAY FOR PNEUMONIA. TODAY, HE IS ALERT AND ORIENTED, SITTING ON THE SIDE OF THE BED ON MORNING ROUNDS. HE IS NOTED WITH COMPLAINTS OF GENERALIZED BODY ACHES, SHORTNESS AND A PERSISTENT, PRODUCTIVE COUGH. ON EXAMINATION, HEART IS REGULAR IN RATE AND RHYTHM. BILATERAL LUNGS ARE NOTED WITH RHONCHI AND EXPIRATORY WHEEZING TO AUSCULTATION. ABDOMEN IS ROUND, SOFT, AND NON-TENDER WITH NORMAL BOWEL SOUNDS NOTED IN ALL QUADRANTS. HIS VITALS THIS MORNING ARE 97.3-66-16-93%-199/96. LABS WERE OBTAINED. ABNORMAL LAB VALUES INCLUDE THE FOLLOWING: HCT 40.8, PLT COUNT 115, SODIUM 134, POTASSIUM 3.1, CHLORIDE 96, BUN 25, CREATININE 1.60, GLUCOSE 444, CALCIUM 8.2, MAGNESIUM 1.6, TOTAL PROTEIN 6.2, ALBUMIN 2.0. BLOOD CULTURES ARE PENDING. A CHEST XRAY WAS OBTAINED THIS MORNING AND REPORTS PERSISTENT BUT IMPROVING LEFT UPPER LOBE INFILTRATE. HE CONTINUES ON IV ANTIBIOTICS AND RESPIRATORY TREATMENTS. TODAY, WE WILL CONTINUE WITH CURRENT PLAN OF CARE. WE WILL RESUME HOME MEDICATIONS INCLUDING HIS INSULINS. OTHERWISE, WE PLAN TO FOLLOW UP WITH AM LABS AND CONTINUE TO MONITOR PATIENT. - Past Medical Family Social History Past Med/Fam/Surg Hx: No changes since H&P Allergies: Allergies cephalexin [From Keflex] Allergy (Verified 09/02/16 15:04) clindamycin [From Cleocin] Allergy (Verified 09/02/16 15:05) Influenza Virus Vaccines Allergy (Verified 09/02/16 15:05) Penicillins Allergy (Verified 09/02/16 16:59) pneumococcal vaccine [From Pneumovax 23] Allergy (Verified 09/02/16 16:59) Sulfa (Sulfonamide Antibiotics) [SULFA] Allergy (Verified 09/02/16 15:05) - Review of Systems ROS: No change since H&P - Vital Signs and I&O's Vital Signs: Temperature 97.6 F Pulse Rate [Left Brachial] 68 Pulse Rate 86 Respiratory Rate 18 Blood Pressure [Left Arm] 159/86 Blood Pressure [Right Arm] 132/71 Blood Pressure [Right Arm] 137/75 Blood Pressure [Left Arm] 145/77 Blood Pressure 165/93 O2 Sat by Pulse Oximetry 95 Intake and Output: Intake & Output 03/24/17 03/25/17 03/26/17 03/27/17 11:59 11:59 11:59 11:59 Intake Total 1810 1280 Output Total 1700 1225 Balance 110 55 - Physical Exam Oriented: Normal Eyes: Normal. negative: Blurred Vision, Diplopia, Discharge, Pain, Redness, Photophobia, Other Ear: Normal. negative: Right, Left, Swelling, Ecchymosis, Hemotypanum, Abrasion , Laceration Nose: Normal. negative: Injected, Discharge, Blood, Other Throat: Normal. negative: Tonsillar Hypertrophy, Red, Exudate, Dry, Other Respiratory: Right, Left, Generalized, Wheezes, Rhonchi Cardiovascular: Normal. negative: S3, S4, Murmur : Normal. negative: Dysuria, Hematuria, Frequency, Discharge, Testicular Pain , Bleeding, , Other Auscultation: Bowel Sounds: Normal. negative: Bruit, Absent, Increased, Decreased, High Pitched, Other Palpation: Normal Tenderness: Normal. negative: Rebound, Guarding, Rigidity Skin: Normal Musculoskeletal: Instability (LEFT BELOW THE KNEE AMPUTATION) Psychiatric: Normal Mood Description: Calm Affect: Normal Speech Pattern: Clear, Appropriate - Laboratory and Diagnostics Result Diagrams: 03/26/17 05:44 03/26/17 19:53 Labs: 03/25/17 18:58 Sputum - Expectorated Sputum Sputum Culture - Final 03/25/17 18:58 Sputum - Expectorated Sputum - Final Laboratory WBC 3.7 X10^3/uL (3.6-10.0) 03/26/17 05:44 RBC 5.28 X10^6/uL (4.7-6.0) 03/26/17 05:44 Hgb 13.6 g/dL (13.5-18.0) 03/26/17 05:44 Hct 40.8 % (42.0-54.0) L 03/26/17 05:44 MCV 77.3 fL (80.0-100.0) L 03/26/17 05:44 MCH 25.8 pg (27.0-34.0) L 03/26/17 05:44 MCHC 33.3 g/dL (33.0-35.0) 03/26/17 05:44 RDW 18.2 % (11.6-16.5) H 03/26/17 05:44 Plt Count 115 X10^3/uL (150.0-450.0) L 03/26/17 05:44 Plt Count Comment Decreased (ADEQUATE) 03/26/17 05:44 MPV 10.0 fL (7.4-11.0) 03/26/17 05:44 Neut % 61.1 % (42.0-75.0) 03/26/17 05:44 Lymph % 19.5 % (21.0-51.0) L 03/26/17 05:44 [place] % 14.5 % (0.0-13.0) H 03/26/17 05:44 Eos % 3.3 % (0.9-2.9) H 03/26/17 05:44 Baso % 1.6 % (0.2-1.0) H 03/26/17 05:44 Neut # 2.3 x10^3/uL (2.2-4.8) 03/26/17 05:44 Lymph # 0.7 X10^3/uL (1.3-2.9) L 03/26/17 05:44 [place] # 0.5 x10^3/uL (0.3-0.8) 03/26/17 05:44 Eos # 0.1 x10^3/uL (0.0-0.2) 03/26/17 05:44 Baso # 0.1 X10^3/uL (0.0-0.1) 03/26/17 05:44 Absolute Nucleated RBC 0.1 /100WBC 03/26/17 05:44 Plt Morphology Comment Abnormal (NORMAL) 03/26/17 05:44 RBC Morphology Abnormal (NORMAL) 03/26/17 05:44 Hypochromasia Slight A 03/26/17 05:44 Poikilocytosis 1+ A 03/25/17 17:22 Anisocytosis 1+ A 03/26/17 05:44 Microcytosis Slight A 03/26/17 05:44 Sodium 134 mmol/L (136-145) L 03/26/17 05:44 Corrected Sodium 142 mmol/L (136-145) 03/26/17 05:44 Potassium 3.9 mmol/L (3.5-5.1) 03/26/17 19:53 Chloride 96 mmol/L (98-107) L 03/26/17 05:44 Carbon Dioxide 29.9 mmol/L (21-32) 03/26/17 05:44 BUN 25 mg/dL (7-18) H 03/26/17 05:44 Creatinine 1.60 mg/dL (0.70-1.30) H 03/26/17 05:44 Est GFR (MDRD) Af Amer 59 (>60) 03/26/17 05:44 Est GFR (MDRD) Non-Af 49 (>60) L 03/26/17 05:44 Glucose 462 mg/dL (65-99) H 03/26/17 11:35 POC Glucose (mg/dL) 275 mg/dL (65-99) H 03/26/17 19:57 Calcium 8.2 mg/dL (8.5-10.1) L 03/26/17 05:44 Corrected Calcium 9.8 mg/dL (8.5-10.1) 03/26/17 05:44 Magnesium 1.6 mg/dL (1.7-2.9) L 03/26/17 05:44 Total Bilirubin 0.50 mg/dL (0.2-1.0) 03/26/17 05:44 AST 21 Units/L (15-37) 03/26/17 05:44 ALT 15 Units/L (12-78) 03/26/17 05:44 Alkaline Phosphatase 76 Units/L (46-116) 03/26/17 05:44 Total Protein 6.2 g/dL (6.4-8.2) L 03/26/17 05:44 Albumin 2.0 g/dL (3.4-5.0) L 03/26/17 05:44 Globulin 4.2 g/dL (2.5-4.5) 03/26/17 05:44 Albumin/Globulin Ratio 0.5 Ratio (1.1-2.1) L 03/26/17 05:44 - Plan (1) Pneumonia Status: Acute Qualifiers: Pneumonia type: due to unspecified organism Laterality: left Lung location: upper lobe of lung Qualified Code(s): J18.1 - Lobar pneumonia, unspecified organism Plan: LEVAQUIN 750MG IV DAILY, 1/2 NS AT 50ML/HR, RESPIRATORY TREATMENTS, SUPPLEMENTAL OXYGEN, CONTINUE TO MONITOR (2) Influenza Status: Acute Plan: TAMIFLU 75MG PO BID, CONTINUE TO MONITOR (3) Hypermagnesemia Status: Acute Plan: MAGNESIUM PROTOCOL, CONTINUE TO MONITOR (4) Hypokalemia Status: Acute Plan: POTASSIUM PROTOCOL, CONTINUE TO MONITOR (5) Depression Status: Chronic Qualifiers: Depression Type: major depressive disorder Active/Remission status: remission status unspecified Plan: CONTINUE LEXAPRO, CONTINUE TO MONITOR (6) CHF (congestive heart failure) Status: Chronic Qualifiers: Congestive heart failure type: unspecified Congestive heart failure chronicity: chronic Qualified Code(s): I50.9 - Heart failure, unspecified Plan: CONTINUE FUROSEMIDE, CONTINUE COREG, CONTINUE LISINOPRIL, CONTINUE TO MONITOR (7) Anxiety Status: Chronic Plan: CONTINUE KLONOPIN, CONTINUE TO MONITOR (8) Coronary artery disease Status: Chronic Qualifiers: Coronary Disease-Associated Artery/Lesion type: [place] artery [place] vs. transplanted heart: [place] heart Associated angina: angina presence unspecified Qualified Code(s): I25.10 - Atherosclerotic heart disease of [place] coronary artery without angina pectoris Plan: CONTINUE PLAVIX, CONTINUE TO MONITOR (9) Hypertension Status: Chronic Qualifiers: Hypertension type: essential hypertension Qualified Code(s): I10 - Essential (primary) hypertension Plan: CONTINUE NORVASC, CONTINUE COREG, CONTINUE ZESTORETIC, CONTINUE TO MONITOR (10) Diabetes mellitus, type 2 Status: Chronic Qualifiers: Diabetes mellitus complication status: with neurologic complications Diabetes mellitus complication detail: with polyneuropathy Diabetes mellitus terminal operations manager insulin use: with custodial use Qualified Code(s): E11.42 - Type 2 diabetes mellitus with diabetic polyneuropathy Plan: CONTINUE LANTUS 50UNITS SC BID, CONTINUE HUMULIN R SLIDIDNG SCALE, CHECK OTBS, CONTINUE TO MONITOR
[2017-03-27] MEDS: DUONEB 0.5 MG/3 MG NEB SCH ×6 (00:40→20:56)
[2017-03-27] MEDS: TUSSIONEX PENNKINETIC SUSP PO SCH ×2 (05:01→16:26)
[2017-03-27 05:50] LABS: ALBUMIN 2.1 g/dL (3.4-5.0); CALCIUM 8.3 mg/dL (8.5-10.1); CARBON DIOXIDE 33.2 mmol/L (21-32); COR CA(FOR HYPOALB) 9.8 mg/dL (8.5-10.1); CREATININE 1.69 mg/dL (0.70-1.30); TOTAL PROTEIN 6.5 g/dL (6.4-8.2)
[2017-03-27 05:54] LABS: BASOPHILS % (AUTO) 0.6 % (0.2-1.0); EOSINOPHILS # (AUTO) 0.2 x10^3/uL (0.0-0.2); EOSINOPHILS % (AUTO) 3.9 % (0.9-2.9); HEMATOCRIT 41.9 % (42.0-54.0); HEMOGLOBIN 13.9 g/dL (13.5-18.0); LYMPHOCYTES # (AUTO) 0.8 X10^3/uL (1.3-2.9); LYMPHOCYTES % (AUTO) 19.2 % (21.0-51.0); MEAN CORPUSCULAR HEMOGLOBIN 25.7 pg (27.0-34.0); MEAN CORPUSCULAR HGB CONC 33.2 g/dL (33.0-35.0); MEAN CORPUSCULAR VOLUME 77.3 fL (80.0-100.0); MEAN PLATELET VOLUME 9.9 fL (7.4-11.0); MONOCYTES # (AUTO) 0.4 x10^3/uL (0.3-0.8); MONOCYTES % (AUTO) 10.9 % (0.0-13.0); NEUTROPHILS # (AUTO) 2.6 x10^3/uL (2.2-4.8); NEUTROPHILS % (AUTO) 65.4 % (42.0-75.0); PLATELET COUNT 143 X10^3/uL (150.0-450.0); RED BLOOD COUNT 5.42 X10^6/uL (4.7-6.0); RED CELL DISTRIBUTION WIDTH 17.9 % (11.6-16.5)
[2017-03-27] MEDS: HumuLIN R SUBCUT PRN ×2 (05:59→12:06)
[2017-03-27 06:13] LABS: HYPOCHROMASIA SLIGHT; MICROCYTOSIS SLIGHT; PLATELET MORPHOLOGY COMMENT NORMAL (NORMAL)
[2017-03-27] MEDS ORDERED: NS 1/2 1000 ML IV 1,000 ML IV ONE (06:15)
--- NOTE | 2017-03-27 07:09 | RAD ---
HISTORY: Shortness of breath Study: Single-view chest Comparison: Yesterday Findings: The trachea is midline. The cardiac silhouette is stable. Lungs demonstrate a persistent left upper lobe opacity which is unchanged. The bony thorax is unremarkable. IMPRESSION: 1. Stable chest. Reported By:
[2017-03-27] MEDS ORDERED: LEXAPRO ONE (08:49)
--- NOTE | 2017-03-27 09:06 | DR.UPDATE ---
H&P Update History and Physical Update: WAS SEEN IN THE OFFICE ON 03/25/17. A H&P WAS COMPLETED PRIOR TO ADMISSION. PATIENT HAS BEEN SEEN AND EXAMINED WITH NO CHANGES NOTED TO H&P. Changes noted: NO Yes with the following:
[2017-03-27] MEDS: ROBITUSSIN DM PO SCH ×4 (09:09→21:29)
[2017-03-27] MEDS: LANTUS SC SCH ×2 (09:09→21:27)
[2017-03-27] MEDS: PLAVIX PO SCH (09:12)
[2017-03-27] MEDS: NEURONTIN CAP 300 MG PO SCH (09:12)
[2017-03-27] MEDS: ZESTORETIC 20/25 MG PO SCH (09:12)
[2017-03-27] MEDS: LEXAPRO PO SCH (09:12)
[2017-03-27] MEDS: TAMIFLU PO SCH ×2 (09:12→21:26)
[2017-03-27] MEDS: MICRO K EXTEN CAP 10 MEQ PO SCH (09:12)
[2017-03-27] MEDS: COREG TAB 25 MG PO SCH ×2 (09:13→21:26)
[2017-03-27] MEDS: NORVASC TAB 10 MG PO SCH (09:13)
[2017-03-27] MEDS: PROTONIX TAB 40 MG PO SCH (09:13)
[2017-03-27] MEDS: LEVAQUIN PREMIX IV 750 MG 750 MG/150 ML BAG IV SCH (09:13)
[2017-03-27] MEDS: LASIX PO SCH ×2 (09:13→21:27)
--- NOTE | 2017-03-27 09:25 | PCM.PROG ---
Progress Note - Progress Note for Day of Date: 03/27/17 - Subjective Subjective: WAS A DIRECT ADMISSION YESTERDAY FOR PNEUMONIA. TODAY, HE IS ALERT AND ORIENTED, SITTING ON THE SIDE OF THE BED ON MORNING ROUNDS. HE CONTINUES WITH COMPLAINTS OF GENERALIZED BODY ACHES, SHORTNESS OF BREATH, AND A PERSISTENT, PRODUCTIVE COUGH. ON EXAMINATION, HEART IS REGULAR IN RATE AND RHYTHM. BILATERAL LUNGS CONTINUE WITH RHONCHI AND EXPIRATORY WHEEZING TO AUSCULTATION. ABDOMEN IS ROUND, SOFT, AND NON-TENDER WITH NORMAL BOWEL SOUNDS NOTED IN ALL QUADRANTS. HIS VITALS THIS MORNING ARE 97.3-65-18-94%-163/92. LABS WERE OBTAINED. ABNORMAL LAB VALUES INCLUDE THE FOLLOWING: HCT 41.9, PLT COUNT 143, SODIUM 135, CARBON DIOXIDE 33.2, BUN 23, CREATININE 1.69, GLUCOSE 373, CALCIUM 8.3, ALBUMIN 2.1. BLOOD CULTURES ARE PENDING. A CHEST XRAY WAS OBTAINED THIS MORNING AND REPORTS A PERSISTENT LEFT UPPER LOBE OPACITY WHICH IS UNCHANGED. HE CONTINUES ON IV ANTIBIOTICS AND RESPIRATORY TREATMENTS. TODAY, WE WILL CONTINUE WITH CURRENT PLAN OF CARE. OTHERWISE, WE PLAN TO FOLLOW UP WITH AM LABS AND CONTINUE TO MONITOR PATIENT. - Past Medical Family Social History Past Med/Fam/Surg Hx: No changes since H&P Allergies: Allergies cephalexin [From Keflex] Allergy (Verified 09/02/16 15:04) clindamycin [From Cleocin] Allergy (Verified 09/02/16 15:05) Influenza Virus Vaccines Allergy (Verified 09/02/16 15:05) Penicillins Allergy (Verified 09/02/16 16:59) pneumococcal vaccine [From Pneumovax 23] Allergy (Verified 09/02/16 16:59) Sulfa (Sulfonamide Antibiotics) [SULFA] Allergy (Verified 09/02/16 15:05) - Review of Systems ROS: No change since H&P - Vital Signs and I&O's Vital Signs: Temperature 97.3 F Pulse Rate [Left Brachial] 65 Pulse Rate 86 Respiratory Rate 18 Blood Pressure [Left Arm] 163/92 Blood Pressure [Right Arm] 132/71 Blood Pressure [Right Arm] 137/75 Blood Pressure [Left Arm] 145/77 Blood Pressure 165/93 O2 Sat by Pulse Oximetry 94 Intake and Output: Intake & Output 03/24/17 03/25/17 03/26/17 03/27/17 11:59 11:59 11:59 11:59 Intake Total 1810 3570 Output Total 1700 2925 Balance 110 645 - Physical Exam Oriented: Normal Eyes: Normal. negative: Blurred Vision, Diplopia, Discharge, Pain, Redness, Photophobia, Other Ear: Normal. negative: Right, Left, Swelling, Ecchymosis, Hemotypanum, Abrasion , Laceration Nose: Normal. negative: Injected, Discharge, Blood, Other Throat: Normal. negative: Tonsillar Hypertrophy, Red, Exudate, Dry, Other Respiratory: Right, Left, Generalized, Wheezes, Rhonchi Cardiovascular: Normal. negative: S3, S4, Murmur : Normal. negative: Dysuria, Hematuria, Frequency, Discharge, Testicular Pain , Bleeding, , Other Auscultation: Bowel Sounds: Normal. negative: Bruit, Absent, Increased, Decreased, High Pitched, Other Palpation: Normal Tenderness: Normal. negative: Rebound, Guarding, Rigidity Skin: Normal Musculoskeletal: Instability (LEFT BELOW THE KNEE AMPUTATION) Psychiatric: Normal Mood Description: Calm Affect: Normal Speech Pattern: Clear, Appropriate - Laboratory and Diagnostics Result Diagrams: 03/27/17 05:10 03/27/17 05:10 Labs: 03/25/17 17:22 Blood Blood Culture - Preliminary 03/25/17 18:58 Sputum - Expectorated Sputum Sputum Culture - Final 03/25/17 18:58 Sputum - Expectorated Sputum - Final Laboratory WBC 4.0 X10^3/uL (3.6-10.0) 03/27/17 05:10 RBC 5.42 X10^6/uL (4.7-6.0) 03/27/17 05:10 Hgb 13.9 g/dL (13.5-18.0) 03/27/17 05:10 Hct 41.9 % (42.0-54.0) L 03/27/17 05:10 MCV 77.3 fL (80.0-100.0) L 03/27/17 05:10 MCH 25.7 pg (27.0-34.0) L 03/27/17 05:10 MCHC 33.2 g/dL (33.0-35.0) 03/27/17 05:10 RDW 17.9 % (11.6-16.5) H 03/27/17 05:10 Plt Count 143 X10^3/uL (150.0-450.0) L 03/27/17 05:10 Plt Count Comment Adequate (ADEQUATE) 03/27/17 05:10 MPV 9.9 fL (7.4-11.0) 03/27/17 05:10 Neut % 65.4 % (42.0-75.0) 03/27/17 05:10 Lymph % 19.2 % (21.0-51.0) L 03/27/17 05:10 [place] % 10.9 % (0.0-13.0) 03/27/17 05:10 Eos % 3.9 % (0.9-2.9) H 03/27/17 05:10 Baso % 0.6 % (0.2-1.0) 03/27/17 05:10 Neut # 2.6 x10^3/uL (2.2-4.8) 03/27/17 05:10 Lymph # 0.8 X10^3/uL (1.3-2.9) L 03/27/17 05:10 [place] # 0.4 x10^3/uL (0.3-0.8) 03/27/17 05:10 Eos # 0.2 x10^3/uL (0.0-0.2) 03/27/17 05:10 Baso # 0.0 X10^3/uL (0.0-0.1) 03/27/17 05:10 Absolute Nucleated RBC 0.1 /100WBC 03/27/17 05:10 Plt Morphology Comment Normal (NORMAL) 03/27/17 05:10 RBC Morphology Abnormal (NORMAL) 03/27/17 05:10 Hypochromasia Slight A 03/27/17 05:10 Poikilocytosis 1+ A 03/25/17 17:22 Anisocytosis 1+ A 03/26/17 05:44 Microcytosis Slight A 03/27/17 05:10 Sodium 135 mmol/L (136-145) L 03/27/17 05:10 Corrected Sodium 142 mmol/L (136-145) 03/27/17 05:10 Potassium 3.7 mmol/L (3.5-5.1) 03/27/17 05:10 Chloride 98 mmol/L (98-107) 03/27/17 05:10 Carbon Dioxide 33.2 mmol/L (21-32) H 03/27/17 05:10 BUN 23 mg/dL (7-18) H 03/27/17 05:10 Creatinine 1.69 mg/dL (0.70-1.30) H 03/27/17 05:10 Est GFR (MDRD) Af Amer 56 (>60) L 03/27/17 05:10 Est GFR (MDRD) Non-Af 46 (>60) L 03/27/17 05:10 Glucose 373 mg/dL (65-99) H 03/27/17 05:10 POC Glucose (mg/dL) 369 mg/dL (65-99) H 03/27/17 05:36 Calcium 8.3 mg/dL (8.5-10.1) L 03/27/17 05:10 Corrected Calcium 9.8 mg/dL (8.5-10.1) 03/27/17 05:10 Magnesium 1.6 mg/dL (1.7-2.9) L 03/26/17 05:44 Total Bilirubin 0.40 mg/dL (0.2-1.0) 03/27/17 05:10 AST 18 Units/L (15-37) 03/27/17 05:10 ALT 14 Units/L (12-78) 03/27/17 05:10 Alkaline Phosphatase 77 Units/L (46-116) 03/27/17 05:10 Total Protein 6.5 g/dL (6.4-8.2) 03/27/17 05:10 Albumin 2.1 g/dL (3.4-5.0) L 03/27/17 05:10 Globulin 4.4 g/dL (2.5-4.5) 03/27/17 05:10 Albumin/Globulin Ratio 0.5 Ratio (1.1-2.1) L 03/27/17 05:10 - Plan (1) Pneumonia Status: Acute Qualifiers: Pneumonia type: due to unspecified organism Laterality: left Lung location: upper lobe of lung Qualified Code(s): J18.1 - Lobar pneumonia, unspecified organism Plan: LEVAQUIN 750MG IV DAILY, 1/2 NS AT 50ML/HR, RESPIRATORY TREATMENTS, SUPPLEMENTAL OXYGEN, CONTINUE TO MONITOR (2) Influenza Status: Acute Plan: TAMIFLU 75MG PO BID, CONTINUE TO MONITOR (3) Hypermagnesemia Status: Acute Plan: MAGNESIUM PROTOCOL, CONTINUE TO MONITOR (4) Hypokalemia Status: Acute Plan: POTASSIUM PROTOCOL, CONTINUE TO MONITOR (5) Depression Status: Chronic Qualifiers: Depression Type: major depressive disorder Active/Remission status: remission status unspecified Plan: CONTINUE LEXAPRO, CONTINUE TO MONITOR (6) CHF (congestive heart failure) Status: Chronic Qualifiers: Congestive heart failure type: unspecified Congestive heart failure chronicity: chronic Qualified Code(s): I50.9 - Heart failure, unspecified Plan: CONTINUE FUROSEMIDE, CONTINUE COREG, CONTINUE LISINOPRIL, CONTINUE TO MONITOR (7) Anxiety Status: Chronic Plan: CONTINUE KLONOPIN, CONTINUE TO MONITOR (8) Coronary artery disease Status: Chronic Qualifiers: Coronary Disease-Associated Artery/Lesion type: [place] artery [place] vs. transplanted heart: [place] heart Associated angina: angina presence unspecified Qualified Code(s): I25.10 - Atherosclerotic heart disease of [place] coronary artery without angina pectoris Plan: CONTINUE PLAVIX, CONTINUE TO MONITOR (9) Hypertension Status: Chronic Qualifiers: Hypertension type: essential hypertension Qualified Code(s): I10 - Essential (primary) hypertension Plan: CONTINUE NORVASC, CONTINUE COREG, CONTINUE ZESTORETIC, CONTINUE TO MONITOR (10) Diabetes mellitus, type 2 Status: Chronic Qualifiers: Diabetes mellitus complication status: with neurologic complications Diabetes mellitus complication detail: with polyneuropathy Diabetes mellitus intermediate manager insulin use: with prison use Qualified Code(s): E11.42 - Type 2 diabetes mellitus with diabetic polyneuropathy Plan: CONTINUE LANTUS 50UNITS SC BID, CONTINUE HUMULIN R SLIDIDNG SCALE, CHECK OTBS, CONTINUE TO MONITOR
[2017-03-27] MEDS: NS 1/2 1000 ML IV 1,000 ML IV SCH (11:03)
[2017-03-27] MEDS: RESTORIL CAP 30 MG PO SCH (21:26)
[2017-03-27] MEDS: KLONOPIN TAB 1 MG PO SCH (21:27)
[2017-03-27] MEDS: NEURONTIN TAB 600 MG PO SCH (21:27)
[2017-03-27] MEDS: SNACK - Diabetic Appropriate PO SCH (21:28)
[2017-03-28] MEDS: DUONEB 0.5 MG/3 MG NEB SCH ×6 (00:48→21:39)
[2017-03-28] MEDS ORDERED: NS 1/2 1000 ML IV 1,000 ML IV ONE (03:32)
[2017-03-28] MEDS: NS 1/2 1000 ML IV 1,000 ML IV SCH ×2 (03:46→16:41)
[2017-03-28] MEDS: TUSSIONEX PENNKINETIC SUSP PO SCH ×2 (05:23→16:40)
--- NOTE | 2017-03-28 06:25 | RAD ---
Examination: AP chest History: Pneumonia, SOB Comparison 03/27/2017 Findings: Continued cardiac enlargement with essentially clear lungs and pleural spaces. No pneumotho rax or large pleural effusion. Impression: Stable cardiomegaly, no interval change. Reported By:
[2017-03-28 06:50] LABS: BASOPHILS % (AUTO) 0.6 % (0.2-1.0); EOSINOPHILS # (AUTO) 0.2 x10^3/uL (0.0-0.2); EOSINOPHILS % (AUTO) 3.6 % (0.9-2.9); HEMATOCRIT 42.6 % (42.0-54.0); HEMOGLOBIN 14.4 g/dL (13.5-18.0); LYMPHOCYTES # (AUTO) 0.9 X10^3/uL (1.3-2.9); LYMPHOCYTES % (AUTO) 16.2 % (21.0-51.0); MEAN CORPUSCULAR HEMOGLOBIN 25.9 pg (27.0-34.0); MEAN CORPUSCULAR HGB CONC 33.8 g/dL (33.0-35.0); MEAN CORPUSCULAR VOLUME 76.7 fL (80.0-100.0); MEAN PLATELET VOLUME 9.8 fL (7.4-11.0); MONOCYTES # (AUTO) 0.5 x10^3/uL (0.3-0.8); MONOCYTES % (AUTO) 9.2 % (0.0-13.0); NEUTROPHILS # (AUTO) 3.8 x10^3/uL (2.2-4.8); NEUTROPHILS % (AUTO) 70.4 % (42.0-75.0); PLATELET COUNT 172 X10^3/uL (150.0-450.0); RED BLOOD COUNT 5.56 X10^6/uL (4.7-6.0); WHITE BLOOD COUNT 5.5 X10^3/uL (3.6-10.0)
[2017-03-28 07:11] LABS: ALANINE AMINOTRANSFERASE 14 Units/L (12-78); ALBUMIN 2.3 g/dL (3.4-5.0); ALKALINE PHOSPHATASE 75 Units/L (46-116); ASPARTATE AMINO TRANSFERASE 19 Units/L (15-37); BLOOD UREA NITROGEN 23 mg/dL (7-18); CALCIUM 8.8 mg/dL (8.5-10.1); CARBON DIOXIDE 34.6 mmol/L (21-32); CHLORIDE 99 mmol/L (98-107); COR CA(FOR HYPOALB) 10.2 mg/dL (8.5-10.1); CREATININE 1.57 mg/dL (0.70-1.30); SODIUM 138 mmol/L (136-145); TOTAL PROTEIN 6.9 g/dL (6.4-8.2); eGFR BLACK RACES > 60 (>60); eGFR NON BLACK RACES 50 (>60)
[2017-03-28] MEDS ORDERED: LEXAPRO ONE (08:59)
[2017-03-28] MEDS: LEVAQUIN PREMIX IV 750 MG 750 MG/150 ML BAG IV SCH (09:25)
[2017-03-28] MEDS: ZESTORETIC 20/25 MG PO SCH (09:26)
[2017-03-28] MEDS: NEURONTIN CAP 300 MG PO SCH (09:26)
[2017-03-28] MEDS: NORVASC TAB 10 MG PO SCH (09:26)
[2017-03-28] MEDS: LASIX PO SCH ×2 (09:26→21:23)
[2017-03-28] MEDS: COREG TAB 25 MG PO SCH ×2 (09:27→21:24)
[2017-03-28] MEDS: PLAVIX PO SCH (09:27)
[2017-03-28] MEDS: TAMIFLU PO SCH ×2 (09:27→21:23)
[2017-03-28] MEDS: MICRO K EXTEN CAP 10 MEQ PO SCH (09:27)
[2017-03-28] MEDS: LEXAPRO PO SCH (09:28)
[2017-03-28] MEDS: PROTONIX TAB 40 MG PO SCH (09:28)
[2017-03-28] MEDS: LANTUS SC SCH ×2 (09:28→21:24)
[2017-03-28] MEDS: ROBITUSSIN DM PO SCH ×4 (09:29→21:24)
[2017-03-28] MEDS: RESTORIL CAP 30 MG PO SCH (21:23)
[2017-03-28] MEDS: NEURONTIN TAB 600 MG PO SCH (21:23)
[2017-03-28] MEDS: KLONOPIN TAB 1 MG PO SCH (21:23)
[2017-03-28] MEDS: SNACK - Diabetic Appropriate PO SCH (21:25)
[2017-03-29] MEDS ORDERED: NS 1/2 1000 ML IV 1,000 ML IV ONE (00:14)
[2017-03-29] MEDS: DUONEB 0.5 MG/3 MG NEB SCH ×2 (00:42→05:23)
[2017-03-29] MEDS: TUSSIONEX PENNKINETIC SUSP PO SCH (05:24)
[2017-03-29] MEDS: NS 1/2 1000 ML IV 1,000 ML IV SCH (05:25)
[2017-03-29 06:24] LABS: BASOPHILS # (AUTO) 0.1 X10^3/uL (0.0-0.1); BASOPHILS % (AUTO) 0.7 % (0.2-1.0); EOSINOPHILS # (AUTO) 0.3 x10^3/uL (0.0-0.2); EOSINOPHILS % (AUTO) 3.3 % (0.9-2.9); HEMATOCRIT 45.4 % (42.0-54.0); HEMOGLOBIN 15.1 g/dL (13.5-18.0); LYMPHOCYTES # (AUTO) 1.1 X10^3/uL (1.3-2.9); LYMPHOCYTES % (AUTO) 13.3 % (21.0-51.0); MEAN CORPUSCULAR HEMOGLOBIN 25.6 pg (27.0-34.0); MEAN CORPUSCULAR HGB CONC 33.2 g/dL (33.0-35.0); MEAN CORPUSCULAR VOLUME 77.1 fL (80.0-100.0); MEAN PLATELET VOLUME 9.5 fL (7.4-11.0); MONOCYTES # (AUTO) 0.7 x10^3/uL (0.3-0.8); MONOCYTES % (AUTO) 8.4 % (0.0-13.0); NEUTROPHILS # (AUTO) 6.4 x10^3/uL (2.2-4.8); NEUTROPHILS % (AUTO) 74.3 % (42.0-75.0); PLATELET COUNT 233 X10^3/uL (150.0-450.0); RED BLOOD COUNT 5.89 X10^6/uL (4.7-6.0); RED CELL DISTRIBUTION WIDTH 18.3 % (11.6-16.5); WHITE BLOOD COUNT 8.6 X10^3/uL (3.6-10.0)
[2017-03-29 06:31] LABS: ALANINE AMINOTRANSFERASE 14 Units/L (12-78); ALBUMIN 2.3 g/dL (3.4-5.0); ALKALINE PHOSPHATASE 81 Units/L (46-116); ASPARTATE AMINO TRANSFERASE 22 Units/L (15-37); BLOOD UREA NITROGEN 21 mg/dL (7-18); CALCIUM 8.8 mg/dL (8.5-10.1); CARBON DIOXIDE 31.2 mmol/L (21-32); CHLORIDE 100 mmol/L (98-107); COR CA(FOR HYPOALB) 10.2 mg/dL (8.5-10.1); CREATININE 1.61 mg/dL (0.70-1.30); SODIUM 136 mmol/L (136-145); TOTAL PROTEIN 7.3 g/dL (6.4-8.2); eGFR BLACK RACES 59 (>60); eGFR NON BLACK RACES 49 (>60)
[2017-03-29 06:48] LABS: PLATELET MORPHOLOGY COMMENT NORMAL (NORMAL)
[2017-03-29] MEDS: POTASSIUM CHL 40 MEQ/NS 0.45% 500 ML IV PRN (07:14)
[2017-03-29] MEDS ORDERED: LEXAPRO ONE (08:52)
[2017-03-29] MEDS: LEXAPRO PO SCH (09:14)
[2017-03-29] MEDS: LASIX PO SCH (09:15)
[2017-03-29] MEDS: TAMIFLU PO SCH (09:15)
[2017-03-29] MEDS: COREG TAB 25 MG PO SCH (09:15)
[2017-03-29] MEDS: NORVASC TAB 10 MG PO SCH (09:15)
[2017-03-29] MEDS: LEVAQUIN PREMIX IV 750 MG 750 MG/150 ML BAG IV SCH (09:15)
[2017-03-29] MEDS: MICRO K EXTEN CAP 10 MEQ PO SCH (09:15)
[2017-03-29] MEDS: NEURONTIN CAP 300 MG PO SCH (09:15)
[2017-03-29] MEDS: ZESTORETIC 20/25 MG PO SCH (09:15)
[2017-03-29] MEDS: PROTONIX TAB 40 MG PO SCH (09:19)
[2017-03-29] MEDS: ROBITUSSIN DM PO SCH (09:19)
[2017-03-29] MEDS: PLAVIX PO SCH (09:20)
--- NOTE | 2017-03-29 11:04 | RAD ---
HISTORY: Shortness of breath Study: Single view of the chest. Comparison: 03/28/2017 Findings: Cardiomegaly and pulmonary edema without definite effusion. No focal consolidations. Osseous structur es demonstrate no acute abnormality. IMPRESSION: 1. Cardiomegaly and pulmonary edema which is similar to prior. Reported By:
[2017-03-29 12:21] VITALS: BP 146/92
[2017-03-29] MEDS: LANTUS SC SCH (12:40)
--- NOTE | 2017-03-29 20:24 | PCM.PROG ---
Progress Note - Progress Note for Day of Date: 03/28/17 - Subjective Subjective: WAS A DIRECT ADMISSION YESTERDAY FOR PNEUMONIA. TODAY, HE IS ALERT AND ORIENTED, SITTING ON THE SIDE OF THE BED ON MORNING ROUNDS. HE CONTINUES WITH COMPLAINTS OF SHORTNESS OF BREATH, AND A PERSISTENT, PRODUCTIVE COUGH. ON EXAMINATION, HEART IS REGULAR IN RATE AND RHYTHM. BILATERAL LUNGS CONTINUE WITH RHONCHI AND EXPIRATORY WHEEZING TO AUSCULTATION. ABDOMEN IS ROUND , SOFT, AND NON-TENDER WITH NORMAL BOWEL SOUNDS NOTED IN ALL QUADRANTS. HIS VITALS THIS MORNING ARE 97.9-66-20-98%-137/78. LABS WERE OBTAINED. ABNORMAL LAB VALUES INCLUDE THE FOLLOWING: POTASSIUM 3.4, CARBON DIOXIDE 34.6, BUN 23, CREATININE 1.57, GFR 50, GLUCOSE 51, ALBUMIN 2.3, GLOBULIN 4.6. BLOOD CULTURES AND SPUTUM CULTURE ARE PENDING. A CHEST XRAY WAS OBTAINED THIS MORNING AND IS STABLE. HE CONTINUES ON IV ANTIBIOTICS AND RESPIRATORY TREATMENTS. TODAY, WE WILL CONTINUE WITH CURRENT PLAN OF CARE. OTHERWISE, WE PLAN TO FOLLOW UP WITH AM LABS AND CONTINUE TO MONITOR PATIENT. - Past Medical Family Social History Past Med/Fam/Surg Hx: No changes since H&P Allergies: Allergies cephalexin [From Keflex] Allergy (Verified 09/02/16 15:04) clindamycin [From Cleocin] Allergy (Verified 09/02/16 15:05) Influenza Virus Vaccines Allergy (Verified 09/02/16 15:05) Penicillins Allergy (Verified 09/02/16 16:59) pneumococcal vaccine [From Pneumovax 23] Allergy (Verified 09/02/16 16:59) Sulfa (Sulfonamide Antibiotics) [SULFA] Allergy (Verified 09/02/16 15:05) - Review of Systems ROS: No change since H&P - Vital Signs and I&O's Vital Signs: Temperature 97.4 F Pulse Rate [Left Brachial] 62 Pulse Rate 78 Respiratory Rate 20 Blood Pressure [Left Arm] 135/78 Blood Pressure [Right Arm] 146/92 Blood Pressure [Right Arm] 137/75 Blood Pressure [Left Arm] 145/77 Blood Pressure 165/93 O2 Sat by Pulse Oximetry 94 Intake and Output: Intake & Output 03/27/17 03/28/17 03/29/17 03/30/17 11:59 11:59 11:59 11:59 Intake Total 3570 4901 3812 Output Total 2561 8924 5325 Balance 091 -584 -8035 - Physical Exam Oriented: Normal Eyes: Normal. negative: Blurred Vision, Diplopia, Discharge, Pain, Redness, Photophobia, Other Ear: Normal. negative: Right, Left, Swelling, Ecchymosis, Hemotypanum, Abrasion , Laceration Nose: Normal. negative: Injected, Discharge, Blood, Other Throat: Normal. negative: Tonsillar Hypertrophy, Red, Exudate, Dry, Other Respiratory: Right, Left, Generalized, Wheezes, Rhonchi Cardiovascular: Normal. negative: S3, S4, Murmur : Normal. negative: Dysuria, Hematuria, Frequency, Discharge, Testicular Pain , Bleeding, , Other Auscultation: Bowel Sounds: Normal. negative: Bruit, Absent, Increased, Decreased, High Pitched, Other Palpation: Normal Tenderness: Normal. negative: Rebound, Guarding, Rigidity Skin: Normal Musculoskeletal: Instability (LEFT BELOW THE KNEE AMPUTATION) Psychiatric: Normal Mood Description: Calm Affect: Normal Speech Pattern: Clear, Appropriate - Laboratory and Diagnostics Result Diagrams: 03/29/17 05:35 03/29/17 05:35 Labs: 03/25/17 17:30 Blood Blood Culture - Final 03/27/17 08:34 Sputum - Expectorated Sputum Sputum Culture - Final 03/27/17 08:34 Sputum - Expectorated Sputum - Final 03/25/17 17:22 Blood Blood Culture - Preliminary 03/25/17 18:58 Sputum - Expectorated Sputum Sputum Culture - Final 03/25/17 18:58 Sputum - Expectorated Sputum - Final Laboratory WBC 8.6 X10^3/uL (3.6-10.0) 03/29/17 05:35 RBC 5.89 X10^6/uL (4.7-6.0) 03/29/17 05:35 Hgb 15.1 g/dL (13.5-18.0) 03/29/17 05:35 Hct 45.4 % (42.0-54.0) 03/29/17 05:35 MCV 77.1 fL (80.0-100.0) L 03/29/17 05:35 MCH 25.6 pg (27.0-34.0) L 03/29/17 05:35 MCHC 33.2 g/dL (33.0-35.0) 03/29/17 05:35 RDW 18.3 % (11.6-16.5) H 03/29/17 05:35 Plt Count 233 X10^3/uL (150.0-450.0) 03/29/17 05:35 Plt Count Comment Adequate (ADEQUATE) 03/29/17 05:35 MPV 9.5 fL (7.4-11.0) 03/29/17 05:35 Neut % 74.3 % (42.0-75.0) 03/29/17 05:35 Lymph % 13.3 % (21.0-51.0) L 03/29/17 05:35 [place] % 8.4 % (0.0-13.0) 03/29/17 05:35 Eos % 3.3 % (0.9-2.9) H 03/29/17 05:35 Baso % 0.7 % (0.2-1.0) 03/29/17 05:35 Neut # 6.4 x10^3/uL (2.2-4.8) H 03/29/17 05:35 Lymph # 1.1 X10^3/uL (1.3-2.9) L 03/29/17 05:35 [place] # 0.7 x10^3/uL (0.3-0.8) 03/29/17 05:35 Eos # 0.3 x10^3/uL (0.0-0.2) H 03/29/17 05:35 Baso # 0.1 X10^3/uL (0.0-0.1) 03/29/17 05:35 Absolute Nucleated RBC 0.0 /100WBC 03/29/17 05:35 Plt Morphology Comment Normal (NORMAL) 03/29/17 05:35 RBC Morphology Normal (NORMAL) 03/29/17 05:35 Hypochromasia Slight A 03/27/17 05:10 Poikilocytosis 1+ A 03/25/17 17:22 Anisocytosis 1+ A 03/26/17 05:44 Microcytosis Slight A 03/27/17 05:10 Sodium 136 mmol/L (136-145) 03/29/17 05:35 Corrected Sodium TNP 03/29/17 05:35 Potassium 3.3 mmol/L (3.5-5.1) L 03/29/17 05:35 Chloride 100 mmol/L (98-107) 03/29/17 05:35 Carbon Dioxide 31.2 mmol/L (21-32) 03/29/17 05:35 BUN 21 mg/dL (7-18) H 03/29/17 05:35 Creatinine 1.61 mg/dL (0.70-1.30) H 03/29/17 05:35 Est GFR (MDRD) Af Amer 59 (>60) 03/29/17 05:35 Est GFR (MDRD) Non-Af 49 (>60) L 03/29/17 05:35 Glucose 80 mg/dL (65-99) 03/29/17 05:35 POC Glucose (mg/dL) 131 mg/dL (65-99) H 03/29/17 11:24 Hemoglobin A1c 10.8 % 03/29/17 05:35 Calcium 8.8 mg/dL (8.5-10.1) 03/29/17 05:35 Corrected Calcium 10.2 mg/dL (8.5-10.1) H 03/29/17 05:35 Magnesium 1.8 mg/dL (1.7-2.9) 03/29/17 05:35 Total Bilirubin 0.40 mg/dL (0.2-1.0) 03/29/17 05:35 AST 22 Units/L (15-37) 03/29/17 05:35 ALT 14 Units/L (12-78) 03/29/17 05:35 Alkaline Phosphatase 81 Units/L (46-116) 03/29/17 05:35 Total Protein 7.3 g/dL (6.4-8.2) 03/29/17 05:35 Albumin 2.3 g/dL (3.4-5.0) L 03/29/17 05:35 Globulin 5.0 g/dL (2.5-4.5) H 03/29/17 05:35 Albumin/Globulin Ratio 0.5 Ratio (1.1-2.1) L 03/29/17 05:35 - Plan (1) Pneumonia Status: Acute Qualifiers: Pneumonia type: due to unspecified organism Laterality: left Lung location: upper lobe of lung Qualified Code(s): J18.1 - Lobar pneumonia, unspecified organism Plan: LEVAQUIN 750MG IV DAILY, 1/2 NS AT 50ML/HR, RESPIRATORY TREATMENTS, SUPPLEMENTAL OXYGEN, CONTINUE TO MONITOR (2) Influenza Status: Acute Plan: TAMIFLU 75MG PO BID, CONTINUE TO MONITOR (3) Hypermagnesemia Status: Acute Plan: MAGNESIUM PROTOCOL, CONTINUE TO MONITOR (4) Hypokalemia Status: Acute Plan: POTASSIUM PROTOCOL, CONTINUE TO MONITOR (5) Depression Status: Chronic Qualifiers: Depression Type: major depressive disorder Active/Remission status: remission status unspecified Plan: CONTINUE LEXAPRO, CONTINUE TO MONITOR (6) CHF (congestive heart failure) Status: Chronic Qualifiers: Congestive heart failure type: unspecified Congestive heart failure chronicity: chronic Qualified Code(s): I50.9 - Heart failure, unspecified Plan: CONTINUE FUROSEMIDE, CONTINUE COREG, CONTINUE LISINOPRIL, CONTINUE TO MONITOR (7) Anxiety Status: Chronic Plan: CONTINUE KLONOPIN, CONTINUE TO MONITOR (8) Coronary artery disease Status: Chronic Qualifiers: Coronary Disease-Associated Artery/Lesion type: [place] artery [place] vs. transplanted heart: tanana heart Associated angina: angina presence unspecified Qualified Code(s): I25.10 - Atherosclerotic heart disease of tanana coronary artery without angina pectoris Plan: CONTINUE PLAVIX, CONTINUE TO MONITOR (9) Hypertension Status: Chronic Qualifiers: Hypertension type: essential hypertension Qualified Code(s): I10 - Essential (primary) hypertension Plan: CONTINUE NORVASC, CONTINUE COREG, CONTINUE ZESTORETIC, CONTINUE TO MONITOR (10) Diabetes mellitus, type 2 Status: Chronic Qualifiers: Diabetes mellitus complication status: with neurologic complications Diabetes mellitus complication detail: with polyneuropathy Diabetes mellitus engineering supplies sales insulin use: with engineering supplies sales use Qualified Code(s): E11.42 - Type 2 diabetes mellitus with diabetic polyneuropathy Plan: CONTINUE LANTUS 50UNITS SC BID, CONTINUE HUMULIN R SLIDIDNG SCALE, CHECK OTBS, CONTINUE TO MONITOR
== END 2017-03-29 13:20 | disposition home or self-care (01) ==
LOC: OBS 15:22 → MED/SURG 03-27 15:15
PROVIDERS: ADMIT Internal Medicine; ATTEND Internal Medicine
DX: J18.8 Other pneumonia, unspecified organism (principal); F33.8 Other recurrent depressive disorders; J11.1 Influenza due to unidentified influenza virus with other respiratory manifestations; E87.6 Hypokalemia; I50.9 Heart failure, unspecified; I25.10 Atherosclerotic heart disease of native coronary artery without angina pectoris; I10 Essential (primary) hypertension; E11.42 Type 2 diabetes mellitus with diabetic polyneuropathy; E83.41 Hypermagnesemia; R94.4 Abnormal results of kidney function studies
CPT/HCPCS: 36415; 71045; 71046; 80053; 82947; 83036; 83735; 84132; 85025; 87040; 87070; 87205; 94640; 94760; A4222; G9035; G0378; J1815; J1956; J3480; J7620

== ENCOUNTER 2017-05-16 15:06 | Emergency (ER) | payer OTHER ==
[2017-05-16 15:14] VITALS: BP 169/97; BMI 28.4
--- NOTE | 2017-05-16 16:15 | DR.GENAD ---
HPI - PCP Primary Care Physician: ABD - HPI Comment HPI Comment: GETTING WEAK AND SYMPTOMS WORSE TODAY. NO FEVER. FEEL DEHYDRATED. POOR ORAL INTAKE. - Complaint/Symptoms Chief Complaint Doctors Comments: COUGH, CONGESTION, N/V AND MUSCLE ACHES TIMES 4 DAYS. Chief Complaint:: CONGESTION, NAUSEA WITH FLU LIKE SYMPTOMS. HAD THE FLU TWICE THIS YEAR - Nurses notes reviewed Nurses Notes Review: Yes - Source History Provided: Patient - Mode of Arrival Mode of Arrival: Ambulatory - Timing Onset of Chief Complaint: 05/12/17 Came on: Suddenly - Duration Duration: Constant Duration: Days - Severity Severity: Moderate PMH - PMH Past Medical History: Yes Past Medical History: Anxiety, CHF, Diabetes, Hypertension Past Surgical History: Yes Surgical History: Ortho Surgery - Family History History of Family Medical Conditions: Yes Family Medical History: Cancer, Hypertension - Social History Does patient currently use any type of tobacco product: Yes Have you used tobacco products in the last 12 months: Yes Type of Tobacco Use: Cigarettes How many years tobacco product used: 20 Does any household member use tobacco: No Alcohol Use: None Do you use any recreational Drugs:: No Lives With: Alone Lives Where: Home - infectious screening In the last 2 months have you had wt loss of >10#?: NO Have you had fever, night sweats or hemotysis?: No Have you traveled outside the country in the last 6 months?: No Isolation: Standard ROS - Review of Systems Constitutional: Weakness, Fatigue, Loss of Appetite. negative: Chills, Fever Eyes: No Symptoms Reported. negative: Eye Pain, Discharge ENTM: Nose Discharge, Nose Congestion. negative: Ear Pain, Throat Pain Respiratoy: Productive Cough, Short of Breath. negative: Wheezing, Hemoptysis Cardiovascular: No Symptoms Reported. negative: Chest Pain, Edema Gastrointestinal/Abdominal: Abdominal Pain, Nausea, Vomiting Genitourinary: No Symptoms Reported. negative: Dysuria, Frequency, Hematuria Neurological: Headache, Weakness, Dizziness Musculoskeletal: Muscle Pain, Other (LBKA) Integumentary: Dryness Hematologic/Lymphatic: No Symptoms Reported Endocrine: No Symptoms Reported All Other Systems: Reviewed and Negative PE - Vital Signs Vitals: Temperature 97.7 F Pulse Rate 88 Respiratory Rate 22 Blood Pressure 169/97 O2 Sat by Pulse Oximetry 95 - General Limitations: No Limitations General Appearance: Alert - Head Head Exam: Normal Inspection - Eyes Eye exam: Normal Appearance - ENT ENT Exam: Normal External Ear Exam External Ear Exam: Normal External Inspection TM/Canal Exam: Bilateral Normal Nose Exam: Normal Nose Exam Mouth Exam: Normal Inspection Throat Exam: negative: Tonsillar Erythema, Tonsillomegaly, Tonsillar Exudate - Neck Neck Exam: Trachea Midline - Chest Chest Inspection: Symmetric Chest Wall Rise - Respiratory Respiratory Exam: Normal Lung Sounds Bilat Respiratory Exam: Bilateral Rhonchi, Lower Rhonchi - Cardiovascular Cardiovascular Exam: Regular Rate, Normal Rhythm, Normal Heart Sounds - Abdominal Exam Abdominal Exam: Normal Bowel Sounds, Soft, Tenderness Abdominal Tenderness: Diffuse, Moderate - Extremities Extremities Exam: Other (LBKA) - Back Back Exam: Normal Inspection - Neurologic Neurological Exam: Alert, Oriented X3 - Psychiatric Psychiatric Exam: Normal Affect, Normal Mood - Skin Skin Exam: Normal Color MDM - Differential Diagnosis Differential Diagnosis: ABDOMINAL PAIN, GASTRITIS, Course - Treatment Treatment: SEE ORDERS. IN ZOFRAN AND PEPCID IN ED WITH SOME IV FLUID. ALSO IV PHENERGAN. - Education/Counseling Education/Counseling: Patient, Family, Education Educated On: Treatment, Diagnosis, Needs for Follow Up ROR - Labs Reviewed Laboratory Results Reviewed?: Yes Result Diagrams: 05/16/17 17:28 05/16/17 17: Laboratory: WBC 6.1 X10^3/uL (3.6-10.0) 05/16/17 17: RBC 5.63 X10^6/uL (4.7-6.0) 05/16/17 17: Hgb 14.8 g/dL (13.5-18.0) 05/16/17 17: Hct 44.3 % (42.0-54.0) 05/16/17 17: MCV 78.7 fL (80.0-100.0) L 05/16/17 17: MCH 26.3 pg (27.0-34.0) L 05/16/17 17: MCHC 33.5 g/dL (33.0-35.0) 05/16/17 17: RDW 18.6 % (11.6-16.5) H 05/16/17 17: Plt Count 221 X10^3/uL (150.0-450.0) 05/16/17 17: MPV 9.3 fL (7.4-11.0) 05/16/17 17:28 Neut % (Auto) 77.9 % (42.0-75.0) H 05/16/17: Lymph % (Auto) 12.4 % (21.0-51.0) L 05/16/17: [place] % (Auto) 6.7 % (0.0-13.0) 05/16/17 17: Eos % (Auto) 2.0 % (0.9-2.9) 05/16/17: Baso % (Auto) 1.0 % (0.2-1.0) 05/16/17 Neut # (Auto) 4.8 x10^3/uL (2.2-4.8) 05/16/17 Lymph # (Auto) 0.8 X10^3/uL (1.3-2.9) L 05/16/17: [place] # (Auto) 0.4 x10^3/uL (0.3-0.8) 05/16/17: Eos # (Auto) 0.1 x10^3/uL (0.0-0.2) 05/16/17: Baso # (Auto) 0.1 X10^3/uL (0.0-0.1) 05/16/17 Absolute Nucleated RBC 0.1 /100WBC 05/16/17 17: Sodium 139 mmol/L (136-145) 05/16/17: Corrected Sodium 145 mmol/L (136-145) 05/16/17: Potassium 4.4 mmol/L (3.5-5.1) 05/16/17: Chloride 105 mmol/L (98-107) 05/16/17: Carbon Dioxide 26.0 mmol/L (21-32) 05/16/17: BUN 20 mg/dL (7-18) H 05/16/17: Creatinine 1.60 mg/dL (0.70-1.30) H 05/16/17 17: Est GFR (MDRD) Af Amer 59 (>60) 05/16/17 17: Est GFR (MDRD) Non-Af 49 (>60) L 05/16/17 17: Glucose 351 mg/dL (65-99) H 05/16/17 17: Calcium 8.3 mg/dL (8.5-10.1) L 05/16/17 17: Corrected Calcium 9.7 mg/dL (8.5-10.1) 05/16/17 17: Total Bilirubin 0.70 mg/dL (0.2-1.0) 05/16/17 17: AST 16 Units/L (15-37) 05/16/17 17:28 ALT 18 Units/L (12-78) 05/16/17 17: Alkaline Phosphatase 82 Units/L (46-116) 05/16/17 17: B-Natriuretic Peptide > 5000 pg/mL (0-79) H* 05/16/17 17: Total Protein 6.7 g/dL (6.4-8.2) 05/16/17 17: Albumin 2.3 g/dL (3.4-5.0) L 05/16/17 17: Globulin 4.4 g/dL (2.5-4.5) 05/16/17 17: Albumin/Globulin Ratio 0.5 Ratio (1.1-2.1) L 05/16/17 17: Amylase 35 Units/L (25-115) 05/16/17 17: Lipase 72 Units/L (73-393) L 05/16/17 17:28 Specimen Type Random urine 05/16/17 17:32 Urine Color Yellow (YELLOW) 05/16/17 17: Urine Appearance Clear (CLEAR) 05/16/17 17: Urine pH 6.0 (5.0 - 8.0) 05/16/17 17:32 Ur Specific [place]oll[place] 1.015 (1.000-1.030) 05/16/17 17:32 Urine Protein 4+ (NEGATIVE) 05/16/17 17:32 Urine Glucose (UA) 4+ (NEGATIVE) 05/16/17 17:32 Urine Ketones Negative (NEGATIVE) 05/16/17 17:32 Urine Occult Blood 3+ (NEGATIVE) 05/16/17 17:32 Urine Nitrite Negative (NEGATIVE) 05/16/17 17: Urine Bilirubin Negative (NEGATIVE) 05/16/17 17:32 Urine Urobilinogen Normal (NORMAL) 05/16/17 17:32 Ur Leukocyte Esterase 1+ (NEGATIVE) 05/16/17 17:32 Urine RBC 02 - 05 /HPF (NONE SEEN) 05/16/17 17:32 Urine WBC 02 - 05 /HPF (NONE SEEN) 05/16/17 17:32 Ur Squamous Epith Cells Rare /HPF (NEGATIVE) 05/16/17 17:32 Amorphous Sediment Trace /HPF (NEGATIVE) 05/16/17 17:32 Urine Bacteria Negative /HPF (NEGATIVE) 05/16/17 17:32 Hyaline Casts Moderate /LPF (NEGATIVE) 05/16/17 17:32 Fine Granular Casts Few /LPF (NEGATIVE) 05/16/17 17:32 Ur Culture Indicated? No/not indicated 05/16/17 17:32 Acetone, Semi-Quant Negative (NEGATIVE) 05/16/17 17:28 - XRAY XRAY Interpreted by: Radiologist XRAY Findings: REPORT DISCUSS WITH PATIENT. - Diagnosis Discharge Problem: Bronchitis Gastritis Qualifiers: Gastritis type: unspecified gastritis Chronicity: acute Gastritis bleeding: without bleeding Qualified Code(s): K29.00 - Acute gastritis without bleeding Sinusitis Qualifiers: Sinusitis location: unspecified location Chronicity: acute Recurrence: not specified as recurrent Qualified Code(s): J01.90 - Acute sinusitis, unspecified - Discharge Plan Condition: Stable Prescriptions: Ciprofloxacin HCl [CIPRO 500 MG TAB *] 500 mg PO Q12H #20 tab Ondansetron [Zofran ODT 8 mg] 8 mg PO Q8H PRN #12 tab PRN Reason: Nausea/Vomiting - Follow ups/Referrals Follow ups/Referrals: Chad Ayers [Primary Care Provider] - 1 day - Instructions Instructions: Gastritis, Adult, [id number], Sinusitis, Adult, [id number], Acute Bronchitis, Adult
[2017-05-16] MEDS ORDERED: ZOFRAN INJ 4 MG VIAL IVP ONE (16:51)
[2017-05-16] MEDS ORDERED: PEPCID 20 MG IV PREMIX* 20 MG/50 ML BAG IV ONE ×2 (16:51→16:57)
[2017-05-16] MEDS ORDERED: NS 1000 ML 1,000 ML IV ONE (16:51)
[2017-05-16] MEDS ORDERED: NS 1000 ML 1,000 ML ONE (16:57)
[2017-05-16] MEDS ORDERED: ZOFRAN INJ 4 MG VIAL ONE (16:57)
--- NOTE | 2017-05-16 17:23 | RAD ---
Examination: Abdomen with PA chest History: Congestion, nausea and abdominal pain Findings: PA chest demonstrates cardiomegaly and central pulmonary vascular distention. No pleural fl uid. Additional supine and upright views of abdomen demonstrate no evidence for obstruction, ileus or perforation. The rectum is distended with feces. No pathologic calcification or visceral enlargement . Calcification of vas deferens. Impression: 1. Cardiomegaly with mild pulmonary vascular congestion. 2. Rectosigmoid distention with fecal matter consistent with constipation. Correlate clinically. 3. Vas deferens calcification, commonly seen with diabetes. Reported By:
[2017-05-16 17:37] LABS: BASOPHILS # (AUTO) 0.1 X10^3/uL (0.0-0.1); EOSINOPHILS # (AUTO) 0.1 x10^3/uL (0.0-0.2); HEMATOCRIT 44.3 % (42.0-54.0); HEMOGLOBIN 14.8 g/dL (13.5-18.0); LYMPHOCYTES # (AUTO) 0.8 X10^3/uL (1.3-2.9); LYMPHOCYTES % (AUTO) 12.4 % (21.0-51.0); MEAN CORPUSCULAR HEMOGLOBIN 26.3 pg (27.0-34.0); MEAN CORPUSCULAR HGB CONC 33.5 g/dL (33.0-35.0); MEAN CORPUSCULAR VOLUME 78.7 fL (80.0-100.0); MEAN PLATELET VOLUME 9.3 fL (7.4-11.0); MONOCYTES # (AUTO) 0.4 x10^3/uL (0.3-0.8); MONOCYTES % (AUTO) 6.7 % (0.0-13.0); NEUTROPHILS # (AUTO) 4.8 x10^3/uL (2.2-4.8); NEUTROPHILS % (AUTO) 77.9 % (42.0-75.0); PLATELET COUNT 221 X10^3/uL (150.0-450.0); RED BLOOD COUNT 5.63 X10^6/uL (4.7-6.0); RED CELL DISTRIBUTION WIDTH 18.6 % (11.6-16.5); WHITE BLOOD COUNT 6.1 X10^3/uL (3.6-10.0)
[2017-05-16 17:45] LABS: BILIRUBIN,URINE NEGATIVE (NEGATIVE); BLOOD/HEMOGLOBIN,URINE 3+ (NEGATIVE); GLUCOSE, URINE 4+ (NEGATIVE); KETONES,URINE NEGATIVE (NEGATIVE); LEUKOCYTE ESTERASE ,URINE 1+ (NEGATIVE); NITRITES,URINE NEGATIVE (NEGATIVE); PROTEIN,URINE 4+ (NEGATIVE); UROBILINOGEN,URINE NORMAL (NORMAL)
[2017-05-16 17:50] LABS: ALBUMIN 2.3 g/dL (3.4-5.0); CALCIUM 8.3 mg/dL (8.5-10.1); COR CA(FOR HYPOALB) 9.7 mg/dL (8.5-10.1); CREATININE 1.6 mg/dL (0.70-1.30); TOTAL PROTEIN 6.7 g/dL (6.4-8.2)
[2017-05-16 17:53] LABS: APPEARANCE,URINE CLEAR (CLEAR); COLOR,URINE YELLOW (YELLOW)
[2017-05-16 18:14] LABS: BACTERIA,URINE NEGATIVE /HPF (NEGATIVE); SQUAMOUS EPITHELIAL CELL,UR RARE /HPF (NEGATIVE)
[2017-05-16 18:15] LABS: AMORPHOUS SEDIMENT,UR TRACE /HPF (NEGATIVE); FINE GRANULAR CASTS,URINE FEW /LPF (NEGATIVE); HYALINE CASTS, URINE MODERATE /LPF (NEGATIVE)
[2017-05-16] MEDS ORDERED: PHENERGAN INJ 25 MG IV ONE (18:16)
[2017-05-16] MEDS ORDERED: PHENERGAN INJ 25 MG ONE (18:21)
[2017-05-16] MEDS ORDERED: CIPRO TAB 500 MG PO ONE ×2 (18:46→18:47)
== END 2017-05-16 19:00 | disposition home or self-care (01) ==
LOC: MERGE 15:28 → ER 15:28
DX: J40 Bronchitis, not specified as acute or chronic (principal); K29.00 Acute gastritis without bleeding; J01.80 Other acute sinusitis; I51.7 Cardiomegaly
CPT/HCPCS: 36415; 74022; 80053; 81001; 82009; 82150; 83690; 83880; 85025; 96365; 96374; 96375; 99282; 99283; A4222; S0028; J2405; J2550

== ENCOUNTER 2017-05-24 18:37 | Observation (INO) | payer OTHER ==
[2017-05-24 20:30] LABS: BASOPHILS # (AUTO) 0.1 X10^3/uL (0.0-0.1); BASOPHILS % (AUTO) 0.9 % (0.2-1.0); EOSINOPHILS # (AUTO) 0.2 x10^3/uL (0.0-0.2); EOSINOPHILS % (AUTO) 2.3 % (0.9-2.9); HEMATOCRIT 42.8 % (42.0-54.0); HEMOGLOBIN 14.2 g/dL (13.5-18.0); LYMPHOCYTES # (AUTO) 0.9 X10^3/uL (1.3-2.9); LYMPHOCYTES % (AUTO) 12.2 % (21.0-51.0); MEAN CORPUSCULAR HEMOGLOBIN 26.8 pg (27.0-34.0); MEAN CORPUSCULAR HGB CONC 33.2 g/dL (33.0-35.0); MEAN CORPUSCULAR VOLUME 80.7 fL (80.0-100.0); MEAN PLATELET VOLUME 10.1 fL (7.4-11.0); MONOCYTES # (AUTO) 0.7 x10^3/uL (0.3-0.8); MONOCYTES % (AUTO) 9.1 % (0.0-13.0); NEUTROPHILS # (AUTO) 5.6 x10^3/uL (2.2-4.8); NEUTROPHILS % (AUTO) 75.5 % (42.0-75.0); PLATELET COUNT 148 X10^3/uL (150.0-450.0); RED CELL DISTRIBUTION WIDTH 18.5 % (11.6-16.5); WHITE BLOOD COUNT 7.4 X10^3/uL (3.6-10.0)
[2017-05-24 20:42] LABS: ALBUMIN 2.3 g/dL (3.4-5.0); CALCIUM 8.2 mg/dL (8.5-10.1); CARBON DIOXIDE 33.1 mmol/L (21-32); COR CA(FOR HYPOALB) 9.6 mg/dL (8.5-10.1); CREATININE 1.6 mg/dL (0.70-1.30)
[2017-05-24] MEDS: CRESTOR TAB 10 MG PO SCH ×2 (21:16→21:17)
[2017-05-24] MEDS: NS 1000 ML 1,000 ML IV SCH (22:54)
[2017-05-25] MEDS ORDERED: NEURONTIN CAP 300 MG PO SCH ×2 (06:00→21:00)
[2017-05-25 06:10] VITALS: BMI 31.0
[2017-05-25 06:40] LABS: BASOPHILS # (AUTO) 0.1 X10^3/uL (0.0-0.1); BASOPHILS % (AUTO) 0.9 % (0.2-1.0); EOSINOPHILS # (AUTO) 0.2 x10^3/uL (0.0-0.2); EOSINOPHILS % (AUTO) 2.5 % (0.9-2.9); HEMATOCRIT 38.5 % (42.0-54.0); HEMOGLOBIN 12.7 g/dL (13.5-18.0); LYMPHOCYTES # (AUTO) 0.8 X10^3/uL (1.3-2.9); MEAN CORPUSCULAR HEMOGLOBIN 26.4 pg (27.0-34.0); MEAN CORPUSCULAR VOLUME 79.9 fL (80.0-100.0); MEAN PLATELET VOLUME 9.9 fL (7.4-11.0); MONOCYTES # (AUTO) 0.7 x10^3/uL (0.3-0.8); NEUTROPHILS # (AUTO) 4.6 x10^3/uL (2.2-4.8); NEUTROPHILS % (AUTO) 72.6 % (42.0-75.0); PLATELET COUNT 120 X10^3/uL (150.0-450.0); RED BLOOD COUNT 4.82 X10^6/uL (4.7-6.0); RED CELL DISTRIBUTION WIDTH 18.3 % (11.6-16.5); WHITE BLOOD COUNT 6.3 X10^3/uL (3.6-10.0)
--- NOTE | 2017-05-25 06:49 | RAD ---
HISTORY: CHF; CVA Study: Single-view chest, done portably and upright Comparison: 03/29/2017 and 05/16/2017. Findings: Trachea is midline. Heart size is upper normal with aortic uncoiling. There is pulmonary vascular con gestion. Increased interstitial markings are present bilaterally compatible with CHF. No consolidatio n, pleural fluid or pneumothorax is seen. Osseous structures are intact. IMPRESSION: Findings having the appearance of mild CHF. Reported By:
[2017-05-25 07:09] LABS: ALANINE AMINOTRANSFERASE 15 Units/L (12-78); ALBUMIN 1.9 g/dL (3.4-5.0); ALKALINE PHOSPHATASE 79 Units/L (46-116); ASPARTATE AMINO TRANSFERASE 15 Units/L (15-37); BLOOD UREA NITROGEN 24 mg/dL (7-18); CALCIUM 7.9 mg/dL (8.5-10.1); CARBON DIOXIDE 29.3 mmol/L (21-32); CHLORIDE 103 mmol/L (98-107); COR CA(FOR HYPOALB) 9.6 mg/dL (8.5-10.1); COR NA(FOR HYPERGLY) 143 mmol/L (136-145); CREATININE 1.39 mg/dL (0.70-1.30); SODIUM 141 mmol/L (136-145); eGFR BLACK RACES > 60 (>60); eGFR NON BLACK RACES 57 (>60)
[2017-05-25] MEDS ORDERED: POTASSIUM CHLORIDE LIQ 20 MEQ UDC PO PRN (07:29)
[2017-05-25] MEDS ORDERED: POTASSIUM CHL 60 MEQ/NS 0.45% 500 ML IV PRN (07:29)
[2017-05-25] MEDS ORDERED: MAGNESIUM SULFATE 1 GM/100 mL PREMIX 1 GM/100 ML BAG IV PRN (07:29)
[2017-05-25] MEDS ORDERED: POTASSIUM CHL 40 MEQ/NS 0.45% 500 ML IV PRN (07:29)
[2017-05-25] MEDS ORDERED: K-RIDER 10 MEQ/NS 100 ML 10 MEQ/100 ML BAG IV PRN (07:29)
[2017-05-25] MEDS ORDERED: K-LYTE EFFERVESCENT PO PRN (07:29)
[2017-05-25] MEDS ORDERED: LEXAPRO ONE (08:20)
[2017-05-25] MEDS: PLAVIX PO SCH (08:46)
[2017-05-25] MEDS: NORVASC TAB 10 MG PO SCH (08:46)
[2017-05-25] MEDS: COREG TAB 25 MG PO SCH ×2 (08:46→21:11)
[2017-05-25] MEDS: MICRO K EXTEN CAP 10 MEQ PO SCH (08:47)
[2017-05-25] MEDS: LEXAPRO PO SCH (08:47)
[2017-05-25] MEDS: PROTONIX TAB 40 MG PO SCH (08:47)
[2017-05-25] MEDS: LANTUS SC SCH ×2 (08:47→21:47)
[2017-05-25] MEDS: ZESTORETIC 20/25 MG PO SCH (08:48)
[2017-05-25] MEDS ORDERED: TESSALON PERLES PO PRN (09:00)
[2017-05-25] MEDS ORDERED: LASIX PO SCH (09:00)
[2017-05-25] MEDS: NS 1000 ML 1,000 ML IV SCH (10:52)
[2017-05-25] MEDS ORDERED: VALIUM PO ONE (11:22)
--- NOTE | 2017-05-25 13:20 | MRI ---
HISTORY: CVA, right-sided weakness, headache Study: Noncontrast MRI of the brain Comparison: CT brain done 05/24/2017. Technique: Multiple imaging planes and pulse sequences were utilized in evaluating the brain by magne tic resonance imaging. No IV contrast agents were utilized. Diffusion weighted imaging sequences and ADC maps were employed. Findings: Ventricular size is normal. Two small areas of increased signal are present in the anterior limb of t he internal capsule on the left side. These likely represent small areas of acute or subacute infarct ion. These do correspond to the finding seen on the CT examination. Areas of chronic appearing infarc t is seen involving the right occipital lobe in the right posterior parietal region. The brainstem an d cerebellum are unremarkable. FLAIR images reveal areas of microangiopathy in the periventricular re gions bilaterally. IMPRESSION: Two small areas of acute or subacute lacunar infarction involving the anterior limb of the internal c apsule on the left side. These do car spine to the area of abnormality seen at CT. Areas of chronic i nfarction are present involving the right occipital lobe and the right posterior parietal region. Reported By:
--- NOTE | 2017-05-25 18:00 | DR.UPDATE ---
H&P Update History and Physical Update: PATIENT WAS SEEN IN THE OFFICE ON 05/24/2017. A H&P WAS COMPLETED PRIOR TO ADMISSION. PATIENT HAS BEEN SEEN AND EXAMINED WITH NO CHANGES NOTED TO H&P. Changes noted: NO Yes with the following:
[2017-05-25] MEDS ORDERED: KLONOPIN TAB 1 MG PO SCH (21:00)
[2017-05-25] MEDS ORDERED: RESTORIL CAP 30 MG PO SCH (21:00)
[2017-05-25] MEDS: CRESTOR TAB 10 MG PO SCH (21:11)
[2017-05-25] MEDS: LASIX IVP SCH (21:12)
[2017-05-26] MEDS: NS 1000 ML 1,000 ML IV SCH (00:48)
[2017-05-26 07:11] LABS: BASOPHILS # (AUTO) 0.1 X10^3/uL (0.0-0.1); EOSINOPHILS # (AUTO) 0.1 x10^3/uL (0.0-0.2); EOSINOPHILS % (AUTO) 2.5 % (0.9-2.9); HEMATOCRIT 36.9 % (42.0-54.0); HEMOGLOBIN 12.2 g/dL (13.5-18.0); LYMPHOCYTES # (AUTO) 0.8 X10^3/uL (1.3-2.9); LYMPHOCYTES % (AUTO) 14.1 % (21.0-51.0); MEAN CORPUSCULAR HEMOGLOBIN 26.6 pg (27.0-34.0); MEAN CORPUSCULAR HGB CONC 33.1 g/dL (33.0-35.0); MEAN CORPUSCULAR VOLUME 80.6 fL (80.0-100.0); MEAN PLATELET VOLUME 9.8 fL (7.4-11.0); MONOCYTES # (AUTO) 0.6 x10^3/uL (0.3-0.8); MONOCYTES % (AUTO) 11.1 % (0.0-13.0); NEUTROPHILS # (AUTO) 4.1 x10^3/uL (2.2-4.8); NEUTROPHILS % (AUTO) 71.3 % (42.0-75.0); PLATELET COUNT 121 X10^3/uL (150.0-450.0); RED BLOOD COUNT 4.57 X10^6/uL (4.7-6.0); RED CELL DISTRIBUTION WIDTH 18.3 % (11.6-16.5); WHITE BLOOD COUNT 5.7 X10^3/uL (3.6-10.0)
[2017-05-26 07:13] LABS: CALCIUM 7.8 mg/dL (8.5-10.1); CARBON DIOXIDE 28.1 mmol/L (21-32); COR CA(FOR HYPOALB) 9.4 mg/dL (8.5-10.1); CREATININE 1.72 mg/dL (0.70-1.30); TOTAL PROTEIN 6.2 g/dL (6.4-8.2)
[2017-05-26] MEDS ORDERED: LEXAPRO ONE (07:53)
[2017-05-26] MEDS: COREG TAB 25 MG PO SCH (08:35)
[2017-05-26] MEDS: LANTUS SC SCH (08:36)
[2017-05-26] MEDS: LEXAPRO PO SCH (08:36)
[2017-05-26] MEDS: LASIX IVP SCH (08:36)
[2017-05-26] MEDS: NORVASC TAB 10 MG PO SCH (08:37)
[2017-05-26] MEDS: PLAVIX PO SCH (08:37)
[2017-05-26] MEDS: MICRO K EXTEN CAP 10 MEQ PO SCH (08:37)
[2017-05-26] MEDS: ZESTORETIC 20/25 MG PO SCH (08:38)
[2017-05-26] MEDS: PROTONIX TAB 40 MG PO SCH (08:38)
[2017-05-26] MEDS ORDERED: NEURONTIN CAP 300 MG PO SCH (09:00)
[2017-05-26] MEDS ORDERED: SNACK - Diabetic Appropriate PO SCH (09:30)
[2017-05-26 12:27] VITALS: BP 128/74
== END 2017-05-26 12:05 | disposition home or self-care (01) ==
LOC: OBS 18:37
PROVIDERS: ADMIT Internal Medicine; ATTEND Internal Medicine
DX: I63.8 Other cerebral infarction (principal); R41.82 Altered mental status, unspecified; I50.20 Unspecified systolic (congestive) heart failure; E11.65 Type 2 diabetes mellitus with hyperglycemia; I10 Essential (primary) hypertension; R26.89 Other abnormalities of gait and mobility; W18.39XA Other fall on same level, initial encounter; Z87.828 Personal history of other (healed) physical injury and trauma; B96.89 Other specified bacterial agents as the cause of diseases classified elsewhere; R94.4 Abnormal results of kidney function studies
CPT/HCPCS: 36415; 70551; 71045; 80053; 83735; 85025; 87070; 87075; 87077; 87186; 87205; A4222; G8978; G8979; G0378; J1815; J1940

== ENCOUNTER → 2017-05-24 | Outpatient (CLI) | payer OTHER ==
[2017-05-19 09:14] VITALS: BP 169/97
--- NOTE | 2017-05-24 15:44 | CT ---
HEAD CT WITHOUT IV CONTRAST CLINICAL INDICATION: Right-sided weakness TECHNIQUE: Axial CT images from skull base to vertex without IV contrast.Dose reduction techniques in cluding Automated Exposure Control (AEC) and adjustment of mA and kV were utlized. COMPARISON: None FINDINGS: Punctate regions of hypoattenuation in the right basal ganglia extending into the right centrum semio morgan. Focal hypoattenuation in the left anterior limb of the internal capsule Old right occipital inf arct. There is no evidence of acute infarction, intracranial hemorrhage, mass or mass effect, or abno rmal extra-axial collection. The density of the larger dural venous sinuses is normal. The ventricles are normal in size, shape and position. The skull base and calvarium are normal. The included [place] sinuses and mastoid air cells are predominantly clear. IMPRESSION: 1. No definite acute intracranial abnormality. 2. Focal hypoattenuation in the anterior limb of the left internal capsule which may represent subacu te to chronic infarct. If there is definite, focal, acute neurologic deficit, MRI with diffusion-weig hted imaging would be more sensitive for detection of acute stroke. 3. 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 Reported By:
== END ==
LOC: RAD 13:45
PROVIDERS: ATTEND Nurse Practitioner Family
DX: R41.82 Altered mental status, unspecified (principal); R53.83 Other fatigue; I25.2 Old myocardial infarction; Z91.81 History of falling
CPT/HCPCS: 70450